=== PATIENT | male | born 1975 | race Caucasian/White ===

== ENCOUNTER 2016-08-23 14:11 | Emergency (ER) | payer BC, OTHER ==
[~2016-08-23] VITALS: Ht 182.9 cm; Wt 127.2 kg
[~2016-08-23 14:11] MED LIST: LISI20TA3 PO
[2016-08-23 14:23] VITALS: TEMP 36.8; Ht 182.9 cm; Wt 127.2 kg
[2016-08-23] MEDS ORDERED: LISINOPRIL 20 MG TAB PO STA (15:22)
[2016-08-23 15:25] VITALS: O2SAT 95
--- NOTE | 2016-08-23 15:25 | EMERGENCY ROOM VISIT NOTE ---
History Report prepared by Melissa: Chelsie Ramos Under the Supervision of: Zoe PaezO. First contact with patient: 15:14 Chief Complaint: HYPERTENSION Stated Complaint: HIGH BLOOD PRESSURE History of Present Illness The patient is a 41 year old male who presents to the Emergency Room with complaints of persistent hypertension for the past day. He reports he does have a history of hypertension after being diagnosed last year, but recently stopped taking his Lisinopril. He notes he lost weight and was "feeling good", which is why he stopped the medication. Earlier this afternoon, he was at a [facility] to get an antibiotic for his recent sinus infection and cold symptoms, and states the PA-C he saw referred him to the ED for his blood pressure. He denies any chest pain, shortness of breath, nausea or vomiting. He has been taking Advil, Tylenol and Mucinex for his symptoms, but denies taking any Sudafed or other decongestant. 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 A total of 10 systems reviewed and were otherwise negative. Past Medical & Surgical Medical Problems: (1) Calculus Of Kidney (2) Lumbar Disc Displacement Social History Smoking Status: Current Every Day Smoker Marital Status: Housing Status: lives with family Occupation Status: employed Current/Historical Medications Scheduled Amoxicillin & Pot Clavulanate (Augmentin 875-125 mg), 875 MG PO BID Lisinopril (Lisinopril), 1 TAB PO DAILY Pseudoephedrine-Guaifenesin (Mucinex D), 1 TAB PO BID Scheduled PRN Pseudoephedrine-Ibuprofen (Advil Cold & Sinus), 2 CAP PO Q4H PRN for CONGESTION Allergies Coded Allergies: No Known Allergies (Unverified , 08/23/16) Physical Exam Vital Signs Date Time Temp Pulse Resp B/P Pulse Ox O2 Delivery O2 Flow Rate FiO2 08/23/16 17:15 91 20 188/130 99 08/23/16 16:06 90 08/23/16 16:02 93 16 178/119 95 Room Air 08/23/16 15:25 95 Room Air 08/23/16 15:25 95 Room Air 08/23/16 14:23 36.8 100 18 220/129 95 Room Air Physical Exam GENERAL: Patient is awake, alert, in no acute distress, patient is resting comfortably and showing no signs of anxiety EYES: The conjunctivae are clear. The pupils are round and reactive. EARS, NOSE, MOUTH AND THROAT: Sinus congestion appreciated, nasal turbinates are inflamed, no significant discharge noted. The nose is without any evidence of any deformity. Tongue is midline NECK: The neck is nontender and supple. RESPIRATORY: Normal respiratory effort is noted there is no evidence of wheezing rhonchi or rales CARDIOVASCULAR: Regular rate and rhythm noted there no murmurs rubs or gallops normal S1 normal S2 GASTROINTESTINAL: The abdomen is soft. Bowel sounds are present in all quadrants. Abdomen is nontender MUSCULOSKELETAL/EXTREMITIES: There is no evidence of gross deformity full range of motion is noted in the hips and shoulders SKIN: There is no obvious evidence of any rash. There are no petechiae, pallor or cyanosis noted. NEUROLOGIC: Patient is awake alert and oriented x3 strength is symmetric patellar reflexes are 2+ bilaterally Medical Decision & Procedures ER Provider Diagnostic Interpretation: This X-Ray was reviewed and interpreted by myself and the radiologist. CHEST ONE VIEW PORTABLE IMPRESSION: No acute process. Electronically signed by: Nelson Soto M.D. 08/23/2016 4:[address] scans were reviewed and interpreted by the radiologist and reviewed by myself. HEAD CT NONCONTRAST Impression: No acute intracranial abnormality. A 4.3 x 1.0 cm extra-axial hypodense lesion within the lateral aspect of the right posterior fossa. This is consistent with arachnoid cyst. This is of doubtful clinical significance. Follow-up nonemergent brain MRI can be used for further evaluation. Electronically signed by: Nelson Soto M.D. 08/23/2016 4:[address] IMPRESSION: 1. Left nasal sinus disease as described above with opacification of the left ostiomeatal unit. 2. Left nasal septal deviation with a left-sided nasal spur. 3. No fluid levels within the paranasal sinuses. Electronically signed by: Nelson Soto M.D. 08/23/2016 4:16 PM Laboratory Results 08/23/16 15:21 Red Blood Count 4.66, Mean Corpuscular Volume 92.3, Mean Corpuscular Hemoglobin 32.0, Mean Corpuscular Hemoglobin Concent 34.7, Mean Platelet Volume 8.9, Neutrophils (%) (Auto) 64.5, Lymphocytes (%) (Auto) 19.1, Monocytes (%) (Auto) 13.5, Eosinophils (%) (Auto) 2.5, Basophils (%) (Auto) 0.2, Neutrophils # (Auto ) 5.18, Lymphocytes # (Auto) 1.54, Monocytes # (Auto) 1.09, Eosinophils # (Auto ) 0.20, Basophils # (Auto) 0.02 08/23/16 15:21 Test 08/23/16 15:21 White Blood Count 8.05 K/uL (4.8-10.8) Red Blood Count 4.66 M/uL (4.7-6.1) Hemoglobin 14.9 g/dL (14.0-18.0) Hematocrit 43.0 % (42-52) Mean Corpuscular Volume 92.3 fL (80-100) Mean Corpuscular Hemoglobin 32.0 pg (25-34) Mean Corpuscular Hemoglobin Concent 34.7 g/dl (32-36) Platelet Count 236 K/uL (130-400) Mean Platelet Volume 8.9 fL (7.4-10.4) Neutrophils (%) (Auto) 64.5 % Lymphocytes (%) (Auto) 19.1 % Monocytes (%) (Auto) 13.5 % Eosinophils (%) (Auto) 2.5 % Basophils (%) (Auto) 0.2 % Neutrophils # (Auto) 5.18 K/uL (1.4-6.5) Lymphocytes # (Auto) 1.54 K/uL (1.2-3.4) Monocytes # (Auto) 1.09 K/uL (0.11-0.59) Eosinophils # (Auto) 0.20 K/uL (0-0.5) Basophils # (Auto) 0.02 K/uL (0-0.2) RDW Standard Deviation 43.4 fL (36.4-46.3) RDW Coefficient of Variation 13.0 % (11.5-14.5) Immature Granulocyte % (Auto) 0.2 % Immature Granulocyte # (Auto) 0.02 K/uL (0.00-0.02) Prothrombin Time 10.7 SECONDS (9.0-12.0) Prothromb Time International Ratio 1.0 (0.9-1.1) Activated Partial Thromboplast Time 28.2 SECONDS (21.0-31.0) Partial Thromboplastin Ratio 1.1 Anion Gap 9.0 mmol/L (3-11) Est Creatinine Clear Calc Drug Dose 136.7 ml/min Estimated GFR () 109.4 Estimated GFR (Non- 94.4 BUN/Creatinine Ratio 12.7 (10-20) Calcium Level 9.1 mg/dl (8.5-10.1) Total Bilirubin 0.4 mg/dl (0.2-1) Aspartate Amino Transf (AST/SGOT) 17 U/L (15-37) Alanine Aminotransferase (ALT/SGPT) 30 U/L (12-78) Alkaline Phosphatase 69 U/L (45-117) Troponin I < 0.015 ng/ml (0-0.045) Total Protein 7.9 gm/dl (6.4-8.2) Albumin 4.2 gm/dl (3.4-5.0) Globulin 3.7 gm/dl (2.5-4.0) Albumin/Globulin Ratio 1.1 (0.9-2) Laboratory results per my review. Medications Administered Medications (Trade) Dose Ordered Sig/Loni Route Start Time Stop Time Status Last Admin Dose Admin Lisinopril (Zestril Tab) 20 mg NOW STAT PO 08/23/16 15:22 08/23/16 15:24 DC 08/23/16 15:32 20 MG Amoxicillin/ Clavulanate Potassium (Augmentin Tab) 875 mg NOW ONCE PO 08/23/16 16:45 08/23/16 16:46 DC 08/23/16 17:11 875 MG ECG Indication: other (hypertension) Rate (beats per minute): 105 Rhythm: sinus tachycardia Findings: no ectopy, other (No acute ST segment abnormalities) Comparison ECG Date: Increased rate, but otherwise no change when compared to October 05, 2014 ED Course 1519: The patient was evaluated in room B11. A complete history and physical examination were performed. 1522: Zestril 20 mg PO. 1545: Augmentin Tab 875 mg PO. 1644: I reevaluated the patient. He is feeling much better. I discussed his results and discharge instructions and he verbalized complete understanding and agreement. Medical Decision Prior records/ancillary studies reviewed regarding the history above. Triage Nursing notes reviewed. Additional history obtained from the family. The patient's history was concerning for hypertension. Differential diagnosis: Etiologies such as benign hypertension, hypertensive emergency, cardiovascular pathology, pheochromocytoma, electrolyte abnormality, renal disease, endorgan damage, as well as others were entertained. The patient is a 41-year-old male who presented to his primary care physician's clinic today for an evaluation of sinus pain and congestion. The patient was using [id number] medication. He was found have a significantly elevated blood pressure and was sent to the emergency department for further evaluation. The patient does admit that he was using some lanq-fhb-[id number] medications which could affect his blood pressure. He also was previously diagnosed with hypertension but stopped taking his medication. I discussed the patient's laboratory and radiographic studies with him. He was started on antibiotic for presumed sinus infection. He was also encouraged to avoid any further over-the- counter medications which could elevate his blood pressure. He was also encouraged to continue his antihypertensive medication as prescribed. He was also encouraged to have his blood pressure rechecked by his primary care physician this week but return to the emergency department immediately if symptoms change worsen or if the need arises. Impression Primary Impression: Sinusitis Additional Impressions: Hypertension Abnormal CT scan of head Scribe Attestation The scribe's documentation has been prepared under my direction and personally reviewed by me in its entirety. I confirm that the note above accurately reflects all work, treatment, procedures, and medical decision making performed by me. Departure Information Dispostion Home / Self-Care Prescriptions Lisinopril (Lisinopril) 20 Mg Tab 1 TAB PO DAILY, #30 TABS Prov: Irving Castro, DO 08/23/16 Amoxicillin & Pot Clavulanate (Augmentin 875-125 mg) 1 Tab Tab 875 MG PO BID for 7 Days, #14 TAB Prov: Irving Castro, DO 08/23/16 Referrals No Doctor, Assigned (PCP) Patient Instructions Hypertension Control, My [facility], Sinusitis Acute Additional Instructions Call your family to schedule a follow-up appointment. Rest and avoid any strenuous activity. Continue all medications as prescribed. Consider using Flonase or another steroid nasal spray to help with decongestion. You are also going to need to schedule an MRI the brain to further evaluate the abnormality noted on CAT scan today. Problem Qualifiers
[2016-08-23 15:30] LABS: BASO % 0.2 %; BASO ABS # 0.02 K/uL (0-0.2); COMPLETE YES; EOS % 2.5 %; IG% 0.2 %; LYMPH % 19.1 %; LYMPH ABS # 1.54 K/uL (1.2-3.4); MEAN CELL VOLUME 92.3 fL (80-100); MEAN CORPUSCULAR HGB CONC 34.7 g/dl (32-36); MEAN PLATELET VOLUME 8.9 fL (7.4-10.4); MONO % 13.5 %; NEUT % 64.5 %; PLATELET COUNT 236 K/uL (130-400); RED BLOOD COUNT 4.66 M/uL (4.7-6.1); WHITE BLOOD COUNT 8.05 K/uL (4.8-10.8)
[2016-08-23 15:45] LABS: PARTIAL THROMBOPLASTIN RATIO 1.1; PROTHROMBIN TIME (PATIENT) 10.7 SECONDS (9.0-12.0)
[2016-08-23] MEDS ORDERED: PSEUCAP67 PO (15:46)
[2016-08-23] MEDS ORDERED: PSEU60TA80 PO (15:46)
[2016-08-23 15:53] LABS: ALT/SGPT 30 U/L (12-78); BLOOD UREA NITROGEN 13 mg/dl (7-18); BUN/CREATININE RATIO 12.7 (10-20); CALCIUM 9.1 mg/dl (8.5-10.1); CARBON DIOXIDE 28 mmol/L (21-32); CHLORIDE 106 mmol/L (98-107); GLUCOSE 88 mg/dl (70-99); POTASSIUM 4.1 mmol/L (3.5-5.1); SODIUM 143 mmol/L (136-145)
[2016-08-23 15:58] LABS: ALB/GLOB RATIO 1.1 (0.9-2); ALKALINE PHOSPHATASE 69 U/L (45-117); AST/SGOT 17 U/L (15-37)
--- NOTE | 2016-08-23 16:11 | DIAGNOSTIC IMAGING REPORT ---
HEAD CT NONCONTRAST CT DOSE: HISTORY: Headache. Sinus pain. TECHNIQUE: Multiaxial CT images of the head were performed without the use of intravenous contrast. Automated exposure control was utilized for this study. Comparison: None. Findings: The calvarium and skull base are intact. The ventricles and sulci are within normal limits. There is no mass, hematoma, midline shift, or acute infarct. Within the right lateral posterior fossa there is an extra-axial 4.3 x 1.0 cm hypodense area resulting in slight mass effect along the right cerebellar hemisphere. This demonstrates CSF density and is therefore consistent with an arachnoid cyst. There is minimal mass effect at the fourth ventricle. However, the fourth ventricle is widely patent. Impression: No acute intracranial abnormality. A 4.3 x 1.0 cm extra-axial hypodense lesion within the lateral aspect of the right posterior fossa. This is consistent with arachnoid cyst. This is of doubtful clinical significance. Follow-up nonemergent brain MRI can be used for further evaluation. Electronically signed by: Nelson Soto M.D. 08/23/2016 4:10 PM Dictated Date/Time: 08/23/2016 4:03 PM
--- NOTE | 2016-08-23 16:17 | DIAGNOSTIC IMAGING REPORT ---
SINUS CT CT DOSE: HISTORY: Headache and facial pain. TECHNIQUE: Multiaxial CT images of the paranasal sinuses were performed and reformatted in the coronal plane without the use of contrast. COMPARISON: None. FINDINGS: Hypertrophied left middle and inferior nasal turbinate resulting in near-complete opacification of the left nasal cavity. The left ostiomeatal unit is also opacified. There is left nasal septal deviation with a left-sided nasal spur. The mastoid air cells are clear. The frontal sinuses are clear. There is minimal mucoperiosteal thickening within the ethmoid air cells, sphenoid sinuses, and right maxillary sinus. The left maxillary sinus is clear. No fluid levels within the paranasal sinuses. The orbits are unremarkable. IMPRESSION: 1. Left nasal sinus disease as described above with opacification of the left ostiomeatal unit. 2. Left nasal septal deviation with a left-sided nasal spur. 3. No fluid levels within the paranasal sinuses. Electronically signed by: Nelson Soto M.D. 08/23/2016 4:16 PM Dictated Date/Time: 08/23/2016 4:10 PM
--- NOTE | 2016-08-23 16:26 | DIAGNOSTIC IMAGING REPORT ---
CHEST ONE VIEW PORTABLE HISTORY: EVALUATE RESPIRATORY DISTRESS.DYSPNEA COMPARISON: Chest 05/30/2014. FINDINGS: The lungs are clear. Cardiac silhouette is normal in size. No pleural effusions. No pneumothorax. IMPRESSION: No acute process. Electronically signed by: Nelson Soto M.D. 08/23/2016 4:24 PM Dictated Date/Time: 08/23/2016 4:23 PM
[2016-08-23] MEDS ORDERED: AMOX875T PO (16:43)
[2016-08-23] MEDS ORDERED: LSN20 PO (16:43)
[2016-08-23] MEDS ORDERED: AMOXICILLIN/CLAVULANATE TAB 875 MG TAB PO ONE (16:45)
[2016-08-23 17:15] VITALS: BP 188/130; PULSE 91; O2SAT 99
== END 2016-08-23 17:17 | disposition home or self-care (01) ==
LOC: C.EDB 14:13
DX: J32.9 Chronic sinusitis, unspecified (principal); I10 Essential (primary) hypertension; Z00.01 Encounter for general adult medical examination with abnormal findings; M51.26 Other intervertebral disc displacement, lumbar region; F17.200 Nicotine dependence, unspecified, uncomplicated; Z87.442 Personal history of urinary calculi

== ENCOUNTER → 2016-08-31 | Outpatient (CLI) | payer OTHER ==
[~2016-08-31] MED LIST changes: +AMOX875T PO; +HYZ/10015 PO; -LISI20TA3 PO; +LSN20 PO; +LSNP/30 PO; +PSEU60TA80 PO; +PSEUCAP67 PO
[2016-08-31 13:30] LABS: BLOOD UREA NITROGEN 14 mg/dl (7-18); BUN/CREATININE RATIO 14.1 (10-20); CARBON DIOXIDE 29 mmol/L (21-32); CHLORIDE 105 mmol/L (98-107); CREATININE 0.99 mg/dl (0.60-1.40); GLUCOSE 102 mg/dl (70-99); POTASSIUM 4.1 mmol/L (3.5-5.1); SODIUM 140 mmol/L (136-145)
== END | disposition home or self-care (01) ==
LOC: C.LAB1850 11:58
PROVIDERS: ATTEND Nurse Practitioner Adult Health
DX: I10 Essential (primary) hypertension (principal); R63.5 Abnormal weight gain

== ENCOUNTER → 2016-09-17 | Outpatient (CLI) | payer OTHER ==
[~2016-09-17] MED LIST changes: -AMOX875T PO; +GADAVIST IV PRN
--- NOTE | 2016-09-17 20:01 | DIAGNOSTIC IMAGING REPORT ---
MRI OF THE BRAIN COMBO CLINICAL HISTORY: Follow-up abnormal CT. Intracranial cyst. COMPARISON STUDY: CT of the brain dated 08/23/16. TECHNIQUE: MRI of the brain was performed utilizing various T1 and T2-weighted sequences in the axial, sagittal, and coronal planes. Contrast-enhanced sequences were acquired following the administration of 12 cc of Gadavist. FINDINGS: Brain parenchyma: There are at least 2 foci of T2 signal abnormality seen within the subcortical and periventricular White matter. The largest is located in the left anterior parietal region as seen on axial T2 image #17 and measures 7 mm. 2 punctate foci of abnormal enhancement are suggested within the left basal ganglia end within left caudate head on axial postcontrast image #13. There is a 3.7 x 1.6 cm lesion in the right posterior fossa which conforms to CSF signal intensity on all sequences. There is no associated restricted diffusion and the appearance is typical for an arachnoid cyst. This causes minimal mass effect on the right cerebellar hemisphere. There is no hemorrhage or midline shift. There is no restricted diffusion typical for acute ischemia. No enhancing mass lesion is identified. Whittington-white matter differentiation is preserved. No extra-axial fluid collection is seen. There are low-lying cerebellar tonsils which project 8 mm below the foramen magnum. Ventricles, sulci, and cisterns: Normal in configuration. Pituitary and sella: Unremarkable. Intracranial vasculature: Normal flow voids are maintained at the skull base. Orbits: The bony orbits are grossly intact. Orbital contents are normal in appearance. Sinuses and mastoids: There is a trace right mastoid effusion. The left mastoid air cells and the paranasal sinuses are clear. Calvarium: Unremarkable. Cervical cord: Partially visualized cervical spinal cord is normal in morphology and signal intensity. IMPRESSION: 1. There is no hemorrhage, enhancing mass, or evidence of acute ischemia. 2. 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 3. The cystic lesion in the right posterior fossa seen by CT follows CSF signal intensity on all sequences and is typical for an arachnoid cyst. 4. There are scattered foci of indeterminant T2 signal within the subcortical and periventricular white matter. Additionally, 2 punctate foci of abnormal enhancement are suggested within the left caudate head and the left basal ganglia. These findings are nonspecific and of indeterminant significance. These could potentially be seen in the setting of a demyelinating disorder or possibly an infectious process such as Lyme disease. Clinical correlation will be essential. At a minimum, 3-6 month MRI follow-up is recommended. Electronically signed by: Rashaun Fuentes M.D. 09/17/2016 8:00 PM Dictated Date/Time: 09/17/2016 7:49 PM
== END | disposition home or self-care (01) ==
LOC: C.MRI 18:59
PROVIDERS: ATTEND Nurse Practitioner Adult Health
DX: R90.89 Other abnormal findings on diagnostic imaging of central nervous system (principal); G93.0 Cerebral cysts

== ENCOUNTER 2016-09-20 13:17 | Emergency (ER) | payer OTHER ==
[~2016-09-20] VITALS: Ht 182.9 cm; Wt 120.0 kg
[~2016-09-20 13:17] MED LIST changes: -GADAVIST IV PRN; -HYZ/10015 PO; -LSNP/30 PO
[2016-09-20 13:22] VITALS: TEMP 36.4; Ht 182.9 cm; Wt 120.0 kg
[2016-09-20] MEDS ORDERED: HYZ/10015 PO (13:52)
[2016-09-20] MEDS ORDERED: ONDANSETRON INJ 2 MG/ML 2 ML VIAL IV STA (14:16)
[2016-09-20] MEDS ORDERED: SODIUM CHLORIDE 0.9% 1000ML 1,000 ML IV STA (14:16)
[2016-09-20 14:29] LABS: BASO % 0.4 %; BASO ABS # 0.03 K/uL (0-0.2); COMPLETE YES; EOS % 0.5 %; HEMATOCRIT 42.3 % (42-52); IG% 0.2 %; LYMPH % 19.4 %; LYMPH ABS # 1.65 K/uL (1.2-3.4); MEAN CELL VOLUME 89.8 fL (80-100); MEAN CORPUSCULAR HEMOGLOBIN 31.6 pg (25-34); MEAN CORPUSCULAR HGB CONC 35.2 g/dl (32-36); MEAN PLATELET VOLUME 9.6 fL (7.4-10.4); MONO % 7.8 %; NEUT % 71.7 %; PLATELET COUNT 275 K/uL (130-400); RED BLOOD COUNT 4.71 M/uL (4.7-6.1); WHITE BLOOD COUNT 8.49 K/uL (4.8-10.8)
[2016-09-20] MEDS ORDERED: HYDROmorphone INJ 1 MG/ML SYR IV ONE (14:30)
[2016-09-20] MEDS ORDERED: OPTIRAY 320 IV PRN (14:30)
[2016-09-20 14:57] LABS: BUN/CREATININE RATIO 7.9 (10-20); CALCIUM 9.5 mg/dl (8.5-10.1); CREATININE 1.1 mg/dl (0.60-1.40); POTASSIUM 3.7 mmol/L (3.5-5.1)
[2016-09-20] MEDS ORDERED: HYDROmorphone INJ 1 MG/ML SYR IV STA (15:18)
--- NOTE | 2016-09-20 15:24 | DIAGNOSTIC IMAGING REPORT ---
ABDOMEN AND PELVIS CT WITH IV CONTRAST CT DOSE: 1089.71 mGy.cm HISTORY: CT abdomen and pelvis ll. Abd pain TECHNIQUE: Multiaxial CT images of the abdomen and pelvis were performed following the use of intravenous contrast. COMPARISON STUDY: 2008 FINDINGS: Lung bases are clear. Liver spleen and pancreas are unremarkable. Kidneys enhance uniformly. Gallbladder is negative for distention. Bowel pattern is nonobstructive. The appendix is normal. IMPRESSION: No acute process of the abdomen or pelvis Electronically signed by: Eliecer Flores M.D. 09/20/2016 3:22 PM Dictated Date/Time: 09/20/2016 3:17 PM
[2016-09-20 16:14] LABS: URINE APPEARANCE CLEAR (CLEAR); URINE BILIRUBIN NEG (NEG); URINE COLOR YELLOW; URINE NITRITE NEG (NEG); URINE PH 7.5 (4.5-7.5); URINE SPECIFIC GRAVITY > 1.045 (1.000-1.030); UROBILINOGEN NEG (NEG); ZZUR CULT IF INDIC CLEAN CATCH NO
[2016-09-20 16:42] LABS: MANUAL MICROSCOPIC REQUIRED? NO; REVIEW REQ? YES
[2016-09-20 17:13] VITALS: BP 163/104; PULSE 79; O2SAT 96
--- NOTE | 2016-09-20 19:42 | EMERGENCY ROOM VISIT NOTE ---
History Report prepared by Melissa: Dasia Matos Under the Supervision of: oZe TenaO. First contact with patient: 14:02 Chief Complaint: ABDOMINAL PAIN Stated Complaint: SEVERE LEFT SIDED PAIN Nursing Triage Summary: Pt reports severe 10/10 LLQ pain that began at approx 12 pm today following eating. Pt reports nausea, and feeling the urge to move bowels. No BM or emesis. History of Present Illness The patient is a 41 year old male who presents to the Emergency Room with complaints of severe constant dull LLQ abdominal pain beginning 2 hours ago. The patient states that the pain started right before he ate breakfast and is now moving into the center of his abdomen. He complains of nausea, the need to move his bowels without any production, and diarrhea. The patient notes that his last bowel movement was 1 hour ago and before that it was yesterday. He denies headache, cough, runny nose, fevers, chest pain, back pain, history of kidney stones, shortness of breath, vomiting, previous issues with constipation , previous abdominal surgeries, history of pancreatitis and pain with urination. The patient rates his pain as a 10/10 in severity. He notes that he occasionally drinks alcohol. Source of History: patient Onset: 2 hours ago Position: abdomen (LLQ) Symptom Intensity: 10/10 Timing: constant Modifying Factors (Worsening): eating Associated Symptoms: + diarrhea, + nausea, No SOB, No back pain, No chest pain, No cough, No fevers, No headache, No urinary symptoms, No vomiting Note: He complains of the need to move his bowels without any production. He denies runny nose, history of kidney stones,previous issues with constipation, previous abdominal surgeries, history of pancreatitis. Review of Systems See HPI for pertinent positives & negatives. A total of 10 systems reviewed and were otherwise negative. Past Medical & Surgical Medical Problems: (1) Calculus Of Kidney (2) Lumbar Disc Displacement Family History No pertinent family history stated. Social History Smoking Status: Current Every Day Smoker Alcohol Use: occasionally Marital Status: Housing Status: lives with family Occupation Status: employed Current/Historical Medications Scheduled Hctz/Losartan (Hyzaar 25MG/100MG), 1 TAB PO DAILY Allergies Coded Allergies: No Known Allergies (Unverified , 08/23/16) Physical Exam Vital Signs Date Time Temp Pulse Resp B/P Pulse Ox O2 Delivery O2 Flow Rate FiO2 3/5/17 17:13 79 18 163/104 96 Room Air 09/20/16 15:57 87 18 172/117 96 Room Air 09/20/16 14:41 76 20 158/110 95 Room Air 09/20/16 14:16 76 20 166/116 99 Room Air 09/20/16 13:22 36.4 76 18 182/109 97 Room Air Physical Exam GENERAL: sitting on the edge off the bed, moderate distress, holding LLQ EYE EXAM: normal conjunctiva OROPHARYNX: no exudate, no erythema, lips, buccal mucosa, and tongue normal and mucous membranes are moist NECK: supple, no nuchal rigidity, no adenopathy, non-tender LUNGS: Clear to auscultation. Normal chest wall mechanics HEART: no murmurs, S1 normal and S2 normal ABDOMEN: holding LLQ but no obvious tenderness on exam, positive bowel sounds, no rebound or guarding. BACK: Back is symmetrical on inspection and there is no deformity, no midline tenderness, no CVA tenderness. SKIN: no rashes and no bruising UPPER EXTREMITIES: upper extremities are grossly normal. LOWER EXTREMITIES: No pitting edema. NEURO EXAM: Normal sensorium, cranial nerves II-XII grossly intact, normal speech, no gross weakness of arms, no gross weakness of legs. Medical Decision & Procedures ER Provider Diagnostic Interpretation: CT:Per my review, radiologist interpretation. ABDOMEN AND PELVIS CT WITH IV CONTRAST COMPARISON STUDY: 2008 FINDINGS: Lung bases are clear. Liver spleen and pancreas are unremarkable. Kidneys enhance uniformly. Gallbladder is negative for distention. Bowel pattern is nonobstructive. The appendix is normal. IMPRESSION: No acute process of the abdomen or pelvis Electronically signed by: Eliecer Flores M.D. 09/20/2016 3:22 PM Dictated Date/Time: 09/20/2016 3:17 PM Laboratory Results 09/20/16 13:45 Red Blood Count 4.71, Mean Corpuscular Volume 89.8, Mean Corpuscular Hemoglobin 31.6, Mean Corpuscular Hemoglobin Concent 35.2, Mean Platelet Volume 9.6, Neutrophils (%) (Auto) 71.7, Lymphocytes (%) (Auto) 19.4, Monocytes (%) (Auto) 7.8, Eosinophils (%) (Auto) 0.5, Basophils (%) (Auto) 0.4, Neutrophils # (Auto) 6.09, Lymphocytes # (Auto) 1.65, Monocytes # (Auto) 0.66, Eosinophils # (Auto) 0.04, Basophils # (Auto) 0.03 09/20/16 13:45 Test 09/20/16 13:45 09/20/16 15:45 09/20/16 16:03 White Blood Count 8.49 K/uL (4.8-10.8) Red Blood Count 4.71 M/uL (4.7-6.1) Hemoglobin 14.9 g/dL (14.0-18.0) Hematocrit 42.3 % (42-52) Mean Corpuscular Volume 89.8 fL (80-100) Mean Corpuscular Hemoglobin 31.6 pg (25-34) Mean Corpuscular Hemoglobin Concent 35.2 g/dl (32-36) Platelet Count 275 K/uL (130-400) Mean Platelet Volume 9.6 fL (7.4-10.4) Neutrophils (%) (Auto) 71.7 % Lymphocytes (%) (Auto) 19.4 % Monocytes (%) (Auto) 7.8 % Eosinophils (%) (Auto) 0.5 % Basophils (%) (Auto) 0.4 % Neutrophils # (Auto) 6.09 K/uL (1.4-6.5) Lymphocytes # (Auto) 1.65 K/uL (1.2-3.4) Monocytes # (Auto) 0.66 K/uL (0.11-0.59) Eosinophils # (Auto) 0.04 K/uL (0-0.5) Basophils # (Auto) 0.03 K/uL (0-0.2) RDW Standard Deviation 40.5 fL (36.4-46.3) RDW Coefficient of Variation 12.4 % (11.5-14.5) Immature Granulocyte % (Auto) 0.2 % Immature Granulocyte # (Auto) 0.02 K/uL (0.00-0.02) Anion Gap 13.0 mmol/L (3-11) Est Creatinine Clear Calc Drug Dose 120.6 ml/min Estimated GFR () 97.5 Estimated GFR (Non- 84.1 BUN/Creatinine Ratio 7.9 (10-20) Calcium Level 9.5 mg/dl (8.5-10.1) Total Bilirubin 0.6 mg/dl (0.2-1) Direct Bilirubin 0.1 mg/dl (0-0.2) Aspartate Amino Transf (AST/SGOT) 21 U/L (15-37) Alanine Aminotransferase (ALT/SGPT) 27 U/L (12-78) Alkaline Phosphatase 62 U/L (45-117) Total Protein 8.2 gm/dl (6.4-8.2) Albumin 4.3 gm/dl (3.4-5.0) Lipase 160 U/L (73-393) Urine Color YELLOW Urine Appearance CLEAR (CLEAR) Urine pH 7.5 (4.5-7.5) Urine Specific [place] > 1.045 (1.000-1.030) Urine Protein NEG (NEG) Urine Glucose (UA) NEG (NEG) Urine Ketones NEG (NEG) Urine Occult Blood NEG (NEG) Urine Nitrite NEG (NEG) Urine Bilirubin NEG (NEG) Urine Urobilinogen NEG (NEG) Urine Leukocyte Esterase NEG (NEG) Urine WBC (Auto) 1-5 /hpf (0-5) Urine RBC (Auto) 0-4 /hpf (0-4) Urine Hyaline Casts (Auto) 1-5 /lpf (0-5) Urine Epithelial Cells (Auto) 5-10 /lpf (0-5) Urine Bacteria (Auto) NEG (NEG) Lactic Acid Level 1.9 mmol/L (0.4-2.0) Laboratory results per my review. Medications Administered Medications (Trade) Dose Ordered Sig/Loni Route Start Time Stop Time Status Last Admin Dose Admin Sodium Chloride (Nss 1000ml) 1,000 ml @ 999 mls/hr Q1H1M STAT IV 09/20/16 14:16 09/20/16 15:16 DC 09/20/16 14:16 999 MLS/HR Ondansetron HCl (Zofran Inj) 4 mg NOW STAT IV 09/20/16 14:16 09/20/16 14:18 DC 09/20/16 14:35 4 MG Hydromorphone HCl (Dilaudid Inj) 1 mg NOW ONCE IV 09/20/16 14:30 09/20/16 14:31 DC 09/20/16 14:39 1 MG Hydromorphone HCl (Dilaudid Inj) 1 mg NOW STAT IV 09/20/16 15:18 09/20/16 15:19 DC 09/20/16 15:22 1 MG ED Course ED COURSE: Vital signs were reviewed and showed hypertension The patients medical record was reviewed The above diagnostic studies were performed and reviewed. ED treatments and interventions as stated above. 1405: The patient was evaluated in room A11. A complete history and physical examination was performed. 1416: Zofran Inj 4mg IV, Sodium Chloride 1000 ml @ 999 mls/hr IV. 1430: Dilaudid Inj 1mg IV. 1518: Dilaudid Inj 1mg IV. 1549: I updated the patient. He is feeling better. 1650: I updated the patient. He is feeling much better. 1655: Upon reevaluation, the patient is hemodynamically stable.I discussed my findings with the patient and he understands and agrees with the treatment plan. Based on the patients age, coexisting illnesses, exam and lab findings the decision to treat as an outpatient was made. The patient remained stable while under my care. The patient appeared well at the time of discharge. Medical Decision Differential diagnoses includes but is not limited to gastritis, peptic ulcer disease, GERD, gallbladder disease, pancreatitis, small bowel obstruction, acute coronary syndrome, pericarditis, ischemic bowel, irritable bowel disease, irritable bowel syndrome, appendicitis, diverticulitis, malignancy, hernia, urinary tract infection, torsion, /ectopic , perforation, trauma, infectious. Patient is a 41-year-old male who presents the ER for left lower quadrant abdominal pain which started earlier today. Abdominal exam is benign. He has urinary complaints. Labs show no significant leukocytosis or anemia. BMP was unremarkable with exception of a mild hypoglycemia. LFTs and bilirubin along with lipase is normal. Lactic acid was normal. UA showed no hematuria and no signs of infection. CT of his abdomen pelvis was unremarkable. His no history of any clotting disorder to suggest ischemic bowel. Patient was updated regards to his findings. He was given 2 doses of IV narcotics. He felt slightly better along with fluids. He was discharged follow-up with his primary care doctor tomorrow for an abdominal recheck. Discussed with Pt concerning signs and symptoms to watch out for. Pt was instructed to follow up with their PCP and discussed with the patient their option to return to the ED at anytime for persistent or worsening symptoms. The appropriate anticipatory guidance and out-patient management, including indications for return to the emergency department, were explained at length to the patient and understood. Impression Primary Impression: LLQ abdominal pain Scribe Attestation The scribe's documentation has been prepared under my direction and personally reviewed by me in its entirety. I confirm that the note above accurately reflects all work, treatment, procedures, and medical decision making performed by me. Departure Information Dispostion Home / Self-Care Referrals No Doctor, Assigned (PCP) Forms Call Back Authorization, HOME CARE DOCUMENTATION FORM, IMPORTANT VISIT INFORMATION Patient Instructions Abdominal Pain - [facility], [place], [facility] Additional Instructions Please follow up with your primary care doctor with in the next 24 hours. Any worsening of your symptoms, please return to the ED immediately. This includes fevers greater than 100.4, worsening pain, persistent nausea vomiting, or any other concerning signs or symptoms from your standpoint. Please follow up with your primary care doctor in regards to your elevated blood pressure in the ER which could and is likely just secondary to pain.
== END 2016-09-20 17:15 | disposition home or self-care (01) ==
LOC: C.EDB 13:18 → C.EDA 17:15
DX: R10.32 Left lower quadrant pain (principal); R19.7 Diarrhea, unspecified; R11.0 Nausea; F17.210 Nicotine dependence, cigarettes, uncomplicated; Z79.899 Other long term (current) drug therapy

== ENCOUNTER → 2016-09-22 | Outpatient (CLI) | payer OTHER ==
[~2016-09-22] MED LIST changes: +HYZ/10015 PO; +LSNP/30 PO
[2016-09-22 18:10] LABS: BUN/CREATININE RATIO 15.1 (10-20); CALCIUM 8.8 mg/dl (8.5-10.1); CARBON DIOXIDE 27 mmol/L (21-32); CHLORIDE 93 mmol/L (98-107); GLUCOSE 181 mg/dl (70-99); POTASSIUM 3.5 mmol/L (3.5-5.1); SODIUM 130 mmol/L (136-145)
[2016-09-22 18:33] LABS: BLOOD UREA NITROGEN 17 mg/dl (7-18)
[2016-09-22 20:53] LABS: LYME DISEASE AB IGG NEG (NEG); LYME DISEASE AB IGM NEG (NEG)
== END | disposition home or self-care (01) ==
LOC: C.LABPBG 12:51
PROVIDERS: ATTEND Nurse Practitioner Adult Health
DX: I10 Essential (primary) hypertension (principal); G93.0 Cerebral cysts; R93.0 Abnormal findings on diagnostic imaging of skull and head, not elsewhere classified; G04.90 Encephalitis and encephalomyelitis, unspecified

== ENCOUNTER → 2016-09-25 | Outpatient (CLI) | payer OTHER ==
[~2016-09-25] MED LIST changes: -LSN20 PO; -PSEU60TA80 PO; -PSEUCAP67 PO
[2016-09-25 16:58] LABS: BLOOD UREA NITROGEN 16 mg/dl (7-18); BUN/CREATININE RATIO 16.6 (10-20); CALCIUM 8.9 mg/dl (8.5-10.1); CARBON DIOXIDE 29 mmol/L (21-32); CHLORIDE 96 mmol/L (98-107); CREATININE 0.98 mg/dl (0.60-1.40); GLUCOSE 144 mg/dl (70-99); POTASSIUM 3.2 mmol/L (3.5-5.1); SODIUM 134 mmol/L (136-145)
== END | disposition home or self-care (01) ==
LOC: C.LABPBG 13:45
PROVIDERS: ATTEND Nurse Practitioner Adult Health
DX: I10 Essential (primary) hypertension (principal); E87.1 Hypo-osmolality and hyponatremia

== ENCOUNTER 2016-10-06 07:13 | Inpatient (IN) | payer OTHER ==
[~2016-10-06] VITALS: Ht 182.9 cm; Wt 117.0 kg
[~2016-10-06 07:13] MED LIST changes: -LSNP/30 PO
[2016-10-06] MEDS ORDERED: SODIUM CHLORIDE 0.9% 1000ML 1,000 ML IV STA ×3 (07:38→08:41)
[2016-10-06] MEDS ORDERED: ACETAMINOPHEN 500 MG TAB PO STA (07:38)
[2016-10-06] MEDS ORDERED: SODIUM CHLORIDE 0.9% 1000ML 1,000 ML IV ONE (07:38)
[2016-10-06 07:51] LABS: BASO % 0.1 %; BASO ABS # 0.02 K/uL (0-0.2); COMPLETE YES; EOS % 0.1 %; HEMATOCRIT 30.2 % (42-52); IG% 0.5 %; LYMPH % 3.5 %; LYMPH ABS # 0.64 K/uL (1.2-3.4); MEAN CELL VOLUME 93.2 fL (80-100); MEAN CORPUSCULAR HEMOGLOBIN 31.8 pg (25-34); MEAN CORPUSCULAR HGB CONC 34.1 g/dl (32-36); MEAN PLATELET VOLUME 8.4 fL (7.4-10.4); MONO % 3.1 %; NEUT % 92.7 %; PLATELET COUNT 439 K/uL (130-400); RED BLOOD COUNT 3.24 M/uL (4.7-6.1); WHITE BLOOD COUNT 18.52 K/uL (4.8-10.8)
--- NOTE | 2016-10-06 07:52 | EMERGENCY ROOM VISIT NOTE ---
History Report prepared by Melissa: Lj Beard Under the Supervision of: Dr. Rafiq Draper M.D. First contact with patient: 07:28 Chief Complaint: FEVER Stated Complaint: SPIKING TEMPS X2WKS,VOMITING,DIARRHEA,ABDOMINAL PA History of Present Illness The patient is a 41 year old male who presents to the Emergency Room with complaints of persistent fevers for the past two weeks. The patient had Ibuprofen at 0545 this morning, per . The patient has had intermittent abdominal pain for which he was in the ED two weeks ago. The pain has improved. He notes that the location in his abdomen in which he experiences the pain changes. The patient does not have abdominal pain currently. The patient has also had a cough and notes that his taste has been off. The patient becomes lightheaded with movement. He has not had diarrhea since leaving the ED two weeks ago. He does not have a headache currently. The patient denies any sore throats or unusual rashes. He has followed up with his PCP since being discharged from the ED. He denies any recent tick bites, and does not strauss or have outdoor pets. He was recently tested for lyme which was negative. 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 The patient denies any history of IVDA. The patient has a history of hypertension and does smoke cigarettes. Source of History: patient, spouse/significant other Onset: two weeks ago Position: other (global) Quality: other (febrile) Timing: other (persistent) Associated Symptoms: + abdominal pain, + cough, + headache, No diarrhea, No rash, No sorethroat Review of Systems See HPI for pertinent positives & negatives. A total of 10 systems reviewed and were otherwise negative. Past Medical & Surgical Medical Problems: (1) Calculus Of Kidney (2) Lumbar Disc Displacement (3) Sepsis Family History Cancer Heart disease Hypertension Lung disease Social History Smoking Status: Current Every Day Smoker Alcohol Use: occasionally Marital Status: Housing Status: lives with family Occupation Status: employed Current/Historical Medications Scheduled Lisinopril (Zestril), 30 MG PO DAILY Allergies Coded Allergies: No Known Allergies (Unverified , 10/06/16) Physical Exam Vital Signs Date Time Temp Pulse Resp B/P Pulse Ox O2 Delivery O2 Flow Rate FiO2 10/06/16 09:57 94 18 113/68 98 Room Air 10/06/16 08:57 36.8 10/06/16 08:45 102 18 130/76 95 Room Air 10/06/16 07:47 112 116/68 115 121/74 119 120/63 10/06/16 07:38 113 18 112/69 96 Room Air 10/06/16 07:28 114 10/06/16 07:26 95 Room Air 10/06/16 07:16 37.8 128 20 104/51 95 Room Air Physical Exam GENERAL: Patient is a healthy-appearing well-nourished. Diaphoretic on exam. HEAD: Normocephalic atraumatic EYES: Ocular movements intact pupils equal and react to light OROPHARYNX mucous membranes are moist no exudates present no erythema or edema present NECK: Supple no nuchal rigidity CHEST: Good equal expansion LUNGS: Clear and equal to auscultation CARDIAC: Normal S1 and S2 ABDOMEN: Soft nontender no guarding BACK: No CVA tenderness EXTREMITIES: No pain upon palpation normal muscle strength in all groups no clubbing cyanosis or edema NEURO: Patient is following commands is answering questions appropriately. Alert and oriented x3 Cranial Nerves 2-12 grossly intact Medical Decision & Procedures ER Provider Diagnostic Interpretation: X-ray results as stated below per interpretation by me and the radiologist: CHEST ONE VIEW PORTABLE CLINICAL HISTORY: Sepsis dyspnea COMPARISON STUDY: 08/23/2016 FINDINGS: Mild stable cardiomegaly. Diaphragms smooth. Lungs are clear. IMPRESSION: Mild stable cardiomegaly. Otherwise negative study Electronically signed by: Eliecer Flores M.D. 10/06/2016 8:08 AM Dictated Date/Time: 10/06/2016 8:08 AM Laboratory Results 10/06/16 07:30 Red Blood Count 3.24, Mean Corpuscular Volume 93.2, Mean Corpuscular Hemoglobin 31.8, Mean Corpuscular Hemoglobin Concent 34.1, Mean Platelet Volume 8.4, Neutrophils (%) (Auto) 92.7, Lymphocytes (%) (Auto) 3.5, Monocytes (%) (Auto) 3.1, Eosinophils (%) (Auto) 0.1, Basophils (%) (Auto) 0.1, Neutrophils # (Auto) 17.19, Lymphocytes # (Auto) 0.64, Monocytes # (Auto) 0.57, Eosinophils # (Auto) 0.01, Basophils # (Auto) 0.02 10/06/16 07:30 Test 10/06/16 07:30 10/06/16 07:50 10/06/16 07:58 White Blood Count 18.52 K/uL (4.8-10.8) Red Blood Count 3.24 M/uL (4.7-6.1) Hemoglobin 10.3 g/dL (14.0-18.0) Hematocrit 30.2 % (42-52) Mean Corpuscular Volume 93.2 fL (80-100) Mean Corpuscular Hemoglobin 31.8 pg (25-34) Mean Corpuscular Hemoglobin Concent 34.1 g/dl (32-36) Platelet Count 439 K/uL (130-400) Mean Platelet Volume 8.4 fL (7.4-10.4) Neutrophils (%) (Auto) 92.7 % Lymphocytes (%) (Auto) 3.5 % Monocytes (%) (Auto) 3.1 % Eosinophils (%) (Auto) 0.1 % Basophils (%) (Auto) 0.1 % Neutrophils # (Auto) 17.19 K/uL (1.4-6.5) Lymphocytes # (Auto) 0.64 K/uL (1.2-3.4) Monocytes # (Auto) 0.57 K/uL (0.11-0.59) Eosinophils # (Auto) 0.01 K/uL (0-0.5) Basophils # (Auto) 0.02 K/uL (0-0.2) RDW Standard Deviation 43.4 fL (36.4-46.3) RDW Coefficient of Variation 12.7 % (11.5-14.5) Immature Granulocyte % (Auto) 0.5 % Immature Granulocyte # (Auto) 0.09 K/uL (0.00-0.02) Prothrombin Time 12.4 SECONDS (9.0-12.0) Prothromb Time International Ratio 1.2 (0.9-1.1) Activated Partial Thromboplast Time 28.0 SECONDS (21.0-31.0) Partial Thromboplastin Ratio 1.1 Anion Gap 8.0 mmol/L (3-11) Est Creatinine Clear Calc Drug Dose 131.0 ml/min Estimated GFR () 109.4 Estimated GFR (Non- 94.4 BUN/Creatinine Ratio 15.5 (10-20) Calcium Level 8.9 mg/dl (8.5-10.1) Total Bilirubin 1.2 mg/dl (0.2-1) Aspartate Amino Transf (AST/SGOT) 26 U/L (15-37) Alanine Aminotransferase (ALT/SGPT) 30 U/L (12-78) Alkaline Phosphatase 94 U/L (45-117) Total Creatine Kinase 49 U/L (39-308) Creatine Kinase MB < 0.5 ng/ml (0.5-3.6) Creatine Kinase MB Ratio (0-3.0) Troponin I 0.038 ng/ml (0-0.045) C-Reactive Protein 16.40 mg/dl (0-0.29) Total Protein 7.4 gm/dl (6.4-8.2) Albumin 2.5 gm/dl (3.4-5.0) Globulin 4.9 gm/dl (2.5-4.0) Albumin/Globulin Ratio 0.5 (0.9-2) Procalcitonin 0.88 ng/mL (0-0.5) Lyme Disease IgG Antibody NEG (NEG) Lyme Disease IgM Antibody NEG (NEG) Monoscreen POS (NEG) Influenza Type A (RT-PCR) Neg for Influ A (NEG) Influenza Type A Antigen Neg for Influ A (NEG) Influenza Type B Antigen Neg for Influ B (NEG) Influenza Type B (RT-PCR) Neg for Influ B (NEG) Bedside Lactic Acid Venous 0.67 mmol/L (0.90-1.70) Labs reviewed by ED physician. Medications Administered Medications (Trade) Dose Ordered Sig/Loni Route Start Time Stop Time Status Last Admin Dose Admin Sodium Chloride 1,000 ml @ 999 mls/hr Q1H1M ONCE IV 10/06/16 07:38 10/06/16 08:38 DC 10/06/16 07:56 999 MLS/HR Sodium Chloride (Nss 1000ml) 1,000 ml @ 999 mls/hr Q1H1M STAT IV 10/06/16 07:38 10/06/16 08:38 DC 10/06/16 07:56 999 MLS/HR Acetaminophen 1000 mg 1,000 mg NOW STAT PO 10/06/16 07:38 10/06/16 07:40 DC 10/06/16 07:57 1,000 MG Sodium Chloride (Nss 1000ml) 1,000 ml @ 999 mls/hr Q1H1M STAT IV 10/06/16 08:11 10/06/16 09:11 DC 10/06/16 08:54 999 MLS/HR Ceftriaxone Sodium (Rocephin Inj) 1 gm NOW STAT IV 10/06/16 08:41 10/06/16 08:43 DC 10/06/16 08:54 1 GM Vancomycin HCl 1 gm 1 gm NOW STAT IV 10/06/16 08:41 10/06/16 08:43 DC 10/06/16 09:57 1 GM Sodium Chloride (Nss 1000ml) 1,000 ml @ 999 mls/hr Q1H1M STAT IV 10/06/16 08:41 10/06/16 09:41 DC 10/06/16 09:55 999 MLS/HR ECG Indication: abdominal pain Rate (beats per minute): 111 Rhythm: sinus tachycardia Findings: no acute ischemic change, no ectopy ED Course 0733: Past medical records reviewed. The patient was evaluated in room B10. A complete history and physical examination was performed. 0738: Tylenol 1000 mg PO, NSS 1000 ml @ 999 mls/hr, NSS 1000 ml @ 999 mls/hr. 0811: Vancomycin HCl 1000 mg / NSS 270 ml @ 125 mls/hr, Levofloxacin 750 mg IV, Zosyn 4.5 gm IV, NSS 1000 ml @ 999 mls/hr. 0841: NSS 1000 ml @ 999 mls/hr, Vancomycin 1 gm IV, Rocephin1 gm IV. 0910: Updated the patient. 0955: Discussed the case with Dr. Mooney, [facility]. The patient will be evaluated. Medical Decision Differential diagnosis: Etiologies such as sepsis, UTI, pneumonia, metabolic, electrolyte abnormalities , cardiac sources, intracerebral event, toxicologic, neurologic, as well as others were entertained. This is a 41-year-old male who presents emergency department with hypotension and tachycardia along with fever. The patient is diaphoretic on examination. He is complaining of abdominal pain however has a benign abdominal examination. Serial abdominal examinations were performed on the patient while the patient was in the emergency department and at no time did the patient exhibited a surgical abdomen. Patient does have an elevation in his white blood count at 18. He is positive for mono. The patient was given Rocephin and vancomycin in the emergency department. Because the patient does meet sepsis criteria I did discuss the case with the hospitalist service who agreed to admit the patient. Patient and are in agreement with the treatment plan. Consults Time Called: 909 Consulting Physician: Dr. Mooney [facility] Returned Call: [phone]: Discussed the case with Dr. Mooney [facility]. The patient will be evaluated. Impression Primary Impression: Sepsis Additional Impression: Mononucleosis Critical Care I have personally spent greater than 30 minutes of critical care time in the direct management of this patient. This includes bedside care, interpretation of diagnostic studies, and testing, discussion with consultants, patient, and family members, and other required patient management activities. This 30 minutes is in excess of all separately billable procedures. Scribe Attestation The scribe's documentation has been prepared under my direction and personally reviewed by me in its entirety. I confirm that the note above accurately reflects all work, treatment, procedures, and medical decision making performed by me. Departure Information Dispostion Being Evaluated By Hospitalist Referrals Mary Doty CRNP (PCP) Patient Instructions My [facility] Problem Qualifiers Primary Impression: Sepsis Sepsis type: sepsis due to unspecified organism Qualified Codes: A41.9 - Sepsis, unspecified organism
[2016-10-06] MEDS ORDERED: LSNP/30 PO (07:55)
[2016-10-06 08:00] LABS: BLOOD UREA NITROGEN 16 mg/dl (7-18); BUN/CREATININE RATIO 15.5 (10-20); CALCIUM 8.9 mg/dl (8.5-10.1); CARBON DIOXIDE 25 mmol/L (21-32); CHLORIDE 98 mmol/L (98-107); GLUCOSE 181 mg/dl (70-99); INR 1.2 (0.9-1.1); PARTIAL THROMBOPLASTIN RATIO 1.1; POTASSIUM 4.3 mmol/L (3.5-5.1); PROTHROMBIN TIME (PATIENT) 12.4 SECONDS (9.0-12.0); SODIUM 131 mmol/L (136-145)
[2016-10-06 08:04] LABS: ALB/GLOB RATIO 0.5 (0.9-2); ALKALINE PHOSPHATASE 94 U/L (45-117); ALT/SGPT 30 U/L (12-78); AST/SGOT 26 U/L (15-37)
--- NOTE | 2016-10-06 08:09 | DIAGNOSTIC IMAGING REPORT ---
CHEST ONE VIEW PORTABLE CLINICAL HISTORY: Sepsis dyspnea COMPARISON STUDY: 08/23/2016 FINDINGS: Mild stable cardiomegaly. Diaphragms smooth. Lungs are clear. IMPRESSION: Mild stable cardiomegaly. Otherwise negative study Electronically signed by: Eliecer Flores M.D. 10/06/2016 8:08 AM Dictated Date/Time: 10/06/2016 8:08 AM
[2016-10-06] MEDS ORDERED: PIPERACILLIN/TAZOBACTAM 4.5 GM/100ML D5W IV STA (08:11)
[2016-10-06] MEDS ORDERED: VANCOMYCIN INJ 1,000 MG in SODIUM CHLORIDE 0.9% 250ML 250 ML IV STA (08:11)
[2016-10-06] MEDS ORDERED: LEVAQUIN 750MG / 150ML D5W IV STA (08:11)
[2016-10-06] MEDS ORDERED: VANCOMYCIN 1GM/270ML NSS IV STA (08:41)
[2016-10-06] MEDS ORDERED: CEFTRIAXONE SOD INJ 1 GM ADDVIAL IV STA (08:41)
[2016-10-06 09:17] LABS: LYME DISEASE AB IGG NEG (NEG); LYME DISEASE AB IGM NEG (NEG)
[2016-10-06] MEDS ORDERED: ONDANSETRON INJ 2 MG/ML 2 ML VIAL IV PRN (10:00)
[2016-10-06] MEDS ORDERED: ALUMINUM/MAGNESIUM/SIMETH (MAALOX MAX) 30 ML UDC PO PRN (10:00)
[2016-10-06] MEDS ORDERED: ACETAMINOPHEN 325 MG TAB PO PRN (10:00)
[2016-10-06] MEDS ORDERED: MAGNESIUM HYDROXIDE SUSP 30 ML UDC PO PRN (10:00)
[2016-10-06 10:28] LABS: INFLUENZA A PCR Neg for Influ A (NEG); INFLUENZA B PCR Neg for Influ B (NEG)
[2016-10-06 10:34] LABS: URINE APPEARANCE CLEAR (CLEAR); URINE BILIRUBIN NEG (NEG); URINE COLOR YELLOW; URINE NITRITE NEG (NEG); URINE SPECIFIC GRAVITY 1.009 (1.000-1.030); UROBILINOGEN NEG (NEG); ZZUR CULT IF INDIC CLEAN CATCH NO
[2016-10-06 10:35] LABS: MANUAL MICROSCOPIC REQUIRED? NO; REVIEW REQ? NO
[2016-10-06 11:23] VITALS: Ht 182.9 cm; Wt 117.0 kg
[2016-10-06] MEDS ORDERED: POLYETHYLENE (MIRALAX) 17 GM PACK PO PRN (11:30)
[2016-10-06 14:01] VITALS: BP 114/71; PULSE 81; TEMP 36.8; O2SAT 98
[2016-10-06 15:44] VITALS: TEMP 36.9
[2016-10-06 16:00] VITALS: O2SAT 98
[2016-10-06] MEDS ORDERED: ENOXAPARIN 40 MG/0.4 ML SYR SQ SCH (16:00)
[2016-10-06 16:23] VITALS: TEMP 37.3
--- NOTE | 2016-10-06 19:39 | DIAGNOSTIC IMAGING REPORT ---
ABDOMINAL ULTRASOUND, RIGHT UPPER QUADRANT HISTORY: RUQ pain, fevers, postprandial pain. COMPARISON: Abdomen and pelvis CT 09/20/2016. FINDINGS: Pancreas: The pancreatic head and tail are obscured by overlying bowel gas. The remaining portions of the pancreas are within normal limits. Liver: Unremarkable. Gallbladder: Only a small portion of the gallbladder was identified which appears unremarkable. However, the majority of the gallbladder was obscured by a gas and fluid-filled loop of bowel/stomach. CBD: 5 mm. Right kidney: No hydronephrosis. IMPRESSION: Only a small portion of the gallbladder was identified which appears unremarkable. However, the majority of the gallbladder was obscured by a gas and fluid-filled loop of bowel/stomach. Electronically signed by: Nelson Soto M.D. 10/06/2016 7:38 PM Dictated Date/Time: 10/06/2016 7:36 PM
--- NOTE | 2016-10-06 20:05 | History and Physical ---
History & Physical Date of Service Oct 06, 2016. History & Physical [id number]
[2016-10-06] MEDS ORDERED: OPTIRAY 320 IV PRN (20:15)
--- NOTE | 2016-10-06 21:38 | HISTORY & PHYSICAL EXAMINATION ---
DATE OF ADMISSION: 10/06/2016 CHIEF COMPLAINT: Abdominal pain. HISTORY OF PRESENT ILLNESS: The patient is a very pleasant 41-year-old male accompanied by his . He has had about 2 weeks of abdominal pain, it is mostly postprandial, it is epigastric as well as left middle and periumbilical, does not seem to radiate anywhere else. It is associated with some nausea and burping as well as actually oddly enough postprandial fevers. Notes generally the symptoms typically have started after he eats, does not necessarily seem to relate to what kind of food he eats, comes on maybe half hour or hour after he eats and lasts for several hours, spontaneous onset, spontaneous resolution. He has been taking Naprosyn as an antiinflammatory which he notes sometimes helps with the fever, but has absolutely no impact on the pain. He has not had vomiting. His bowels have been irregular during this time, sometimes diarrhea, sometimes constipation, sometimes more kind of loose, but there. He has had the fevers almost daily, this morning was 104 and he was feeling worse, so he came to the ER for further evaluation. He did have chills then as well. REVIEW OF SYSTEMS: Negative for any rashes, any joint pain, any known tick bites, no headache, no neck pain, no chest pain, no shortness of breath, no urinary symptoms. Review of systems is otherwise entirely negative except for as above. PAST MEDICAL HISTORY: Includes hypertension, although he notes this has been recent and just generally whenever he has been feeling lousy. Prior to this, he had a sinus infection and notes that during the last couple of months while he has been sick, his blood pressure has been up, otherwise no chronic medical problems. MEDICATIONS: Lisinopril 30 mg daily. Again, fairly recent in onset and he has not been taking the last couple of days because he notes his blood pressures have been lower. PAST SURGICAL HISTORY: Includes orthopedic surgeries including spine surgeries. No abdominal surgeries. FAMILY HISTORY: No immunologic or autoimmune diseases and in general, no family history he notes of significance. ALLERGIES: No known drug allergy. SOCIAL HISTORY: He does not smoke. No significant alcohol. 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 He is . He lives with his family, and has 3 young children. PHYSICAL EXAMINATION: VITAL SIGNS: Initial vitals showed a temp 37.8, pulse 128, respiratory rate 20, blood pressure 104/51, 95% on room air. GENERAL: He is awake, alert, oriented x3, fatigued appearing, but otherwise in no acute distress. HEENT: Normocephalic, atraumatic. Mucous membranes are moist. CARDIOVASCULAR: Regular at the time of my exam, he was tachycardic initially. No rubs, murmurs, or gallops. LUNGS: Clear to auscultation bilaterally. No rales, rhonchi, or wheezes with good effort. ABDOMEN: Soft, moderately distended. He has epigastric and right upper quadrant tenderness without guarding, rebound or rigidity. The rest of his abdomen is benign, soft, nontender, nondistended. EXTREMITIES: Show no cyanosis, clubbing or edema. SKIN: Shows no rashes, no pallor or icterus. NEUROLOGIC: Shows cranial nerves II through XII to be grossly intact. Gross motor and sensory are intact. MENTAL STATE: Shows good recent and remote recall. MUSCULOSKELETAL: Shows no gross lesions. LABS AND DIAGNOSTICS: CBC shows a white count of 18.5, hemoglobin 10.3, platelets 439. Complete metabolic panel with sodium 131, potassium 4.3, chloride 98, CO2 of 25, BUN 16, creatinine 1, calcium 8.9, glucose 181, total bilirubin 1.2 with an AST 26, ALT 30, alk phos 94, CK total of 49 with an MB of less than 0.5, troponin of 0.038, CRP of 16.4. His lactate was 0.67. His procalcitonin is 0.88, albumin 2.5. PT of 12.4 with an INR of 1.2. PTT 28. Lyme is negative. He had a Lyme negative about 2 weeks ago as well. [place] is positive as a mono screen, flu is negative. Urinalysis essentially was negative. He has got 10-20 epithelial cells. Chest x-ray is mild, stable cardiomegaly compared to previous, otherwise no acute findings. Blood cultures are pending. ASSESSMENT AND PLAN: 1. Sepsis, uncertain source. Fortunately, appears overall stable. It is unclear whether this is organ system pathology versus more clear simple bacterial infection. He has been given Levaquin, ceftriaxone and vancomycin in the ER which certainly will cover him while further workup is launched and to protect him from iatrogenic harm. At this point in time will work him up further before continuing empiric antibiotics and wait on time for blood cultures to grow. We will check a right upper quadrant ultrasound given the fact that he has got right upper quadrant tenderness to palpation and a lot of his symptoms are postprandial; however, the way he feels it is more epigastric and left-sided. If the ultrasound is negative, we will proceed with CT abdomen and pelvis as well as again following for his cultures to grow and serial exams. 2. Anemia. Continue to follow. 3. Recent sinusitis. This does not appear to be relevant to his current situation. 4. Deep venous thrombosis prophylaxis with Lovenox. 5. Mildly elevated bilirubin. Continue to follow. 6. Mild hyponatremia, follow up.
[2016-10-06] MEDS ORDERED: PIPERACILL/TAZOBAC IV 3.375 GM in DEXTROSE 5% 100ML 100 ML IV STA (23:15)
--- NOTE | 2016-10-06 23:16 | DIAGNOSTIC IMAGING REPORT ---
ABDOMEN AND PELVIS CT WITH IV AND ORAL CONTRAST CT DOSE: 1431.15 mGy.cm HISTORY: Left-sided abdominal pain, fever; postprandial onset of sx TECHNIQUE: Multiaxial CT images of the abdomen and pelvis were performed following the use of intravenous and oral contrast. COMPARISON STUDY: Abdomen and pelvis CT 09/20/2016. FINDINGS: The lung bases are clear. Posterior fusion hardware within the lower lumbar spine. The pancreas, adrenal glands are unremarkable. Normal right kidney. Punctate stone within the left kidney. No hydronephrosis. Normal bladder. Trace free fluid. Minimal thickening within the proximal transverse colon is likely reactive. Normal appendix. The gallbladder severely distended measuring up to 11 cm. There is gas both within and adjacent to the gallbladder. There is also inflammatory change surrounding the gallbladder. Findings are consistent with gangrenous acute cholecystitis. There is a small amount of gas within the normal caliber common bile duct. There are few small stones within the gallbladder. There are 2 adjacent extraluminal gas and fluid collections which are likely subcapsular rather than intrahepatic. These are consistent with abscesses. One of the abscess adjacent to the falciform ligament measures approximately 4.1 cm and the second subcapsular abscess at the right hepatic lobe measures approximately 5 cm. IMPRESSION: Acute gangrenous cholecystitis as described above. There are 2 adjacent abscesses which appear to be located within the subcapsular location of the liver. These findings were discussed with Dr. Berry at 11:13 PM on 10/06/2016 Electronically signed by: Nelson Soto M.D. 10/06/2016 11:15 PM Dictated Date/Time: 10/06/2016 11:03 PM
[2016-10-06] MEDS ORDERED: PIPERACILL/TAZOBAC IV 4.5 GM in DEXTROSE 5% 100ML IV STA (23:20)
[2016-10-06] MEDS ORDERED: ONDANSETRON INJ 2 MG/ML 2 ML VIAL IV STA (23:24)
[2016-10-06] MEDS ORDERED: PIPERACILL/TAZOBAC CONSULT ACTIVE PRN (23:30)
--- NOTE | 2016-10-06 23:32 | Progress Note ---
Progress Note Date of Service Oct 06, 2016. Progress Note Called by Dr Soto from Radiology about pts CT Scan which showed acute gangrenous cholecystitis Called Dr Duckworth, we ordered another dose of Zosyn to be administered now. I called the pharmacy to ensure this was brought up soon. Went to check on patient, he reported his pain was minimal but he does feel thirsty and nauseated. I paged Dr. uFentes, who said he will come evaluate the patient. I also started him on IV fluids, provided another dose of 4mg IV Zofran
[2016-10-06] MEDS: LACTATED RINGER'S 1000ML 1,000 ML IV SCH (23:45)
[2016-10-06 23:53] VITALS: BP 126/75; PULSE 103; TEMP 37; O2SAT 96
--- NOTE | 2016-10-07 00:03 | CONSULTATION REPORT ---
DATE OF CONSULTATION: 10/06/2016 REASON FOR CONSULTATION: Consult at midnight for acute emphysematous cholecystitis. HISTORY OF PRESENT ILLNESS: The patient is a 41-year-old male admitted this morning with epigastric pain and fever with an elevated white blood cell count and had persistent abdominal pain, underwent CAT scan this evening showing extremely distended gallbladder with fluid and air within the gallbladder consistent with emphysematous cholecystitis. The patient has a history of hypertension, spine surgery and other orthopedic surgery. REVIEW OF SYSTEMS: In the HPI. Ten other systems reviewed and negative. MEDICATIONS: Include lisinopril. FAMILY AND SOCIAL HISTORY: Noncontributory. PHYSICAL EXAMINATION: GENERAL: Currently, the patient is flushed. He is sitting up in the chair. He is awake and alert. HEENT: His sclerae are nonicteric. SKIN: Without rashes. NECK: Supple. LUNGS: Clear. HEART: Regular rate and rhythm. ABDOMEN: Distended. He does have right upper quadrant tenderness to palpation. EXTREMITIES: Show no significant edema. His mentation appears to be appropriate. DIAGNOSTIC IMPRESSION: I did review his CAT scan. ASSESSMENT AND PLAN: A 41-year-old male with what appeared to be a sepsis syndrome and underwent CAT scan examination showing evidence of necrotizing cholecystitis. I do feel intravenous fluids and intravenous antibiotics are appropriate. Also, it was this patient's body habitus and his findings, he is going to be extremely difficult laparoscopically in this situation. I do feel the patient may benefit from interventional radiology and percutaneous drainage of his gallbladder and interval cholecystectomy in several weeks. I am discussing with the primary service, possible transfer to a tertiary care center.
[2016-10-07] MEDS ORDERED: NURSING VERBAL MED ORDER ONE (00:15)
[2016-10-07] MEDS ORDERED: SODIUM CHLORIDE 0.9% 1000ML 1,000 ML IV SCH (00:15)
[2016-10-07] MEDS ORDERED: METRONIDAZOLE / NSS 500 MG in PREMIXED NSS 100 ML IV SCH (00:30)
--- NOTE | 2016-10-07 01:32 | Discharge Instructions ---
Discharge Instructions Date of Service Oct 07, 2016. Admission Reason for Admission: Sepsis Discharge Discharge Diagnosis / Problem: ACUTE NECROTIZING CHOLECYSTITIS Discharge Goals Goal(s): Improve disease control, Therapeutic intervention Activity Recommendations Activity Level: Bedrest . Additional Information Patient informed of condition: Yes Advance Directives: No DNR: No Level of Care: Other ([facility]) Communicable Disease: No Prognosis: Other (NEEDS INTERVENTION) Instructions / Follow-Up Instructions / Follow-Up Aleksander Allison is being transferred to a tertiary care facility for increased level of care, as he requires interventional radiology for his condition, which is unavailable at our facility. Due to his [facility] insurance, he will be transferred to [facility]. Current Hospital Diet Patient's current hospital diet: NPO with IV fluids Discharge Diet Recommended Diet: N/A (NPO) Procedures Procedures Performed: Ultrasound Abdomen: IMPRESSION: Only a small portion of the gallbladder was identified which appears unremarkable. However, the majority of the gallbladder was obscured by a gas and fluid-filled loop of bowel/stomach. ABDOMEN AND PELVIS CT WITH IV AND ORAL CONTRAST CT DOSE: 1431.15 mGy.cm HISTORY: Left-sided abdominal pain, fever; postprandial onset of sx TECHNIQUE: Multiaxial CT images of the abdomen and pelvis were performed following the use of intravenous and oral contrast. COMPARISON STUDY: Abdomen and pelvis CT 09/20/2016. FINDINGS: The lung bases are clear. Posterior fusion hardware within the lower lumbar spine. The pancreas, adrenal glands are unremarkable. Normal right kidney. Punctate stone within the left kidney. No hydronephrosis. Normal bladder. Trace free fluid. Minimal thickening within the proximal transverse colon is likely reactive. Normal appendix. The gallbladder severely distended measuring up to 11 cm. There is gas both within and adjacent to the gallbladder. There is also inflammatory change surrounding the gallbladder. Findings are consistent with gangrenous acute cholecystitis. There is a small amount of gas within the normal caliber common bile duct. There are few small stones within the gallbladder. There are 2 adjacent extraluminal gas and fluid collections which are likely subcapsular rather than intrahepatic. These are consistent with abscesses. One of the abscess adjacent to the falciform ligament measures approximately 4.1 cm and the second subcapsular abscess at the right hepatic lobe measures approximately 5 cm. IMPRESSION: Acute gangrenous cholecystitis as described above. There are 2 adjacent abscesses which appear to be located within the subcapsular location of the liver. CXR: Normal Pending Studies Studies pending at discharge: no Medical Emergencies . Who to Call and When: Medical Emergencies: If at any time you feel your situation is an emergency, please call 911 immediately. . Non-Emergent Contact Non-Emergency issues call your: Primary Care Provider, Hospital Doctor . . "Provider Documentation" section prepared by Ana Maria Berry. Core Measure Problem Core Measures: None
[2016-10-07] MEDS ORDERED: PIPERACILL/TAZOBAC IV 4.5 GM in DEXTROSE 5% 100ML IV SCH (04:00)
[2016-10-07 07:13] VITALS: BP 126/75; PULSE 103; TEMP 37; O2SAT 96
[2016-10-07 07:29] VITALS: BP 124/69; PULSE 98; TEMP 37.5; O2SAT 97
[2016-10-07] MEDS: LACTATED RINGER'S 1000ML 1,000 ML IV SCH (07:38)
[2016-10-07 07:52] LABS: HEMATOCRIT 27.4 % (42-52); MEAN CELL VOLUME 92.3 fL (80-100); MEAN CORPUSCULAR HEMOGLOBIN 30.6 pg (25-34); MEAN CORPUSCULAR HGB CONC 33.2 g/dl (32-36); MEAN PLATELET VOLUME 8.4 fL (7.4-10.4); PLATELET COUNT 388 K/uL (130-400); RED BLOOD COUNT 2.97 M/uL (4.7-6.1); WHITE BLOOD COUNT 12.14 K/uL (4.8-10.8)
[2016-10-07 08:43] LABS: BUN/CREATININE RATIO 13.3 (10-20); CALCIUM 8.3 mg/dl (8.5-10.1); CREATININE 0.76 mg/dl (0.60-1.40); POTASSIUM 3.6 mmol/L (3.5-5.1)
[2016-10-07 10:05] LABS: BASO % 0.2 %; BASO ABS # 0.02 K/uL (0-0.2); COMPLETE YES; EOS % 0.1 %; IG% 0.2 %; LYMPH % 9.5 %; LYMPH ABS # 1.15 K/uL (1.2-3.4); MONO % 9.6 %; NEUT % 80.4 %
--- NOTE | 2016-10-07 10:11 | Discharge Summary ---
Discharge Summary Date of Service Oct 07, 2016. Discharge Summary Admission Date: Oct 06, 2016 at 09:58 Discharge Date: Oct 07, 2016 Discharge Disposition: Acute care facility ([facility]) Principal Diagnosis: gangrenous cholecystitis Procedures: RUQ US benign but GB not well visualized. immediately followed by CT showing appearance of gangrenous cholecystitis Consultations: surgery Medication Reconciliation Discontinued Medications: Lisinopril (Zestril) 30 Mg Tab 30 MG PO DAILY, #30 Discharge Exam see admission exam, R2 notes from early AM; again pt transferred prior to my seeing him Hospital Course see HPI - came to ER after 2wks of worsening abdominal pain/fevers - mostly postprandial sx. pain subjectively L middle, periumbilical, and epigastric; on exam RUQ and epigastric -- because of this RUQ US ordered - was benign but also did not see GB well. immediately followed w CT showing findings c/w gangrenous cholecystitis. surgery consulted - felt this would be best addressed at higher level facility. pt transferred to [facility]. despite gangrenous gallbladder and meeting SIRS criteria therefore septic from gangrenous cholecystitis, he appeared clinically quite stable through his stay, and clearly sx had been gradually worsening over several weeks. blood cultures no growth to date although not yet at 24hr yue, WBC had improved. vitals stable. transferred in stable condition via ground. f/u PCP after discharge from [facility] Total Time Spent: Less than 30 minutes (pt seen in early AM by night coverage ( had signed out case last night) and transferred prior to my seeing him today) This includes examination of the patient, discharge planning, medication reconciliation, and communication with other providers. Discharge Instructions Please refer to the electronic Patient Visit Report (Discharge Instructions) for additional information. Additional Copies To Mary Doty CRNP
[2016-10-08 16:31] LABS: EHRLICHIA CHAFF IGG AB <1:64 (<1:64); EHRLICHIA CHAFF IGM AB <1:20 (<1:20)
== END 2016-10-07 08:15 | disposition short-term general hospital (02) | DRG 872 ==
LOC: ENRESERVDT → ENRESERVTM → C.EDB 07:14 → C.MS2W 09:58
PROVIDERS: ADMIT Family Medicine; ATTEND Family Medicine
DX: A41.9 Sepsis, unspecified organism (principal); K81.0 Acute cholecystitis; E87.1 Hypo-osmolality and hyponatremia; D64.9 Anemia, unspecified; I10 Essential (primary) hypertension; F17.210 Nicotine dependence, cigarettes, uncomplicated; Z79.899 Other long term (current) drug therapy

== ENCOUNTER → 2017-02-12 | Outpatient (CLI) | payer OTHER ==
[2017-02-12 13:09] LABS: ALT/SGPT 29 U/L (12-78); AST/SGOT 19 U/L (15-37); BLOOD UREA NITROGEN 15 mg/dl (7-18); BUN/CREATININE RATIO 15.7 (10-20); CALCIUM 9.3 mg/dl (8.5-10.1); CARBON DIOXIDE 29 mmol/L (21-32); CHLORIDE 108 mmol/L (98-107); CREATININE 0.95 mg/dl (0.60-1.40); GLUCOSE 108 mg/dl (70-99); POTASSIUM 4.1 mmol/L (3.5-5.1); SODIUM 141 mmol/L (136-145)
[2017-02-12 13:12] LABS: ALKALINE PHOSPHATASE 72 U/L (45-117); CHOLESTEROL 166 mg/dl (0-200); CHOLESTEROL/HDL RATIO 4.4; HDL CHOLESTEROL 38 mg/dl; LDL CHOLESTEROL CALCULATED 100 mg/dl; TRIGLYCERIDES 140 mg/dl (0-150); VERY LOW DENSITY LIPOPROT CALC 28 mg/dl
== END | disposition home or self-care (01) ==
LOC: C.LABPBG 10:44
PROVIDERS: ATTEND Neuromusculoskeletal Medicine & OMM
DX: Z00.00 Encounter for general adult medical examination without abnormal findings (principal); I10 Essential (primary) hypertension; E87.1 Hypo-osmolality and hyponatremia

== ENCOUNTER → 2017-06-18 | Outpatient (CLI) | payer OTHER ==
[2017-06-18 12:24] LABS: BLOOD UREA NITROGEN 17 mg/dl (7-18); BUN/CREATININE RATIO 18.6 (10-20); CALCIUM 9.3 mg/dl (8.5-10.1); CARBON DIOXIDE 30 mmol/L (21-32); CHLORIDE 100 mmol/L (98-107); CREATININE 0.89 mg/dl (0.60-1.40); GLUCOSE 116 mg/dl (70-99); POTASSIUM 3.6 mmol/L (3.5-5.1); SODIUM 137 mmol/L (136-145)
== END | disposition home or self-care (01) ==
LOC: C.LABPBG 08:22
PROVIDERS: ATTEND Family Medicine
DX: I10 Essential (primary) hypertension (principal)

== ENCOUNTER 2020-12-04 08:26 | Inpatient (IN) ==
--- NOTE | 2020-11-28 11:06 | Anesthesiology Consultation ---
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 Preoperative COVID19 testing completed on 11/27, will obtain results. Pt with asymptomatic Chiari type I, noted incidentally on brain MRI in 2016. Seen by neurology, told no surgical intervention needed. Spoke to patient, confirmed he is still asymptomatic. He does not recall who he saw for neurology, so unable to obtain note. Spoke to Dr. Gallagher. Nothing further needed, just caution advised with head/neck manipulation/positioning perioperatively. BSG AM DOS. Chart Review Chart Review: Acceptable Risk for Surgery and Patient NOT seen in Pre Admission Testing History Surgery Operation Date: 12/04/20 12:45 Proposed Procedures p L3-L4 Decompression and Fusion, L4-L5 Hardware Removal, Spinal Cord Monitoring - Dre Christensen, Height/Weight Height: 6 ft 1 in Weight: 129.274 kg Allergies Allergy/AdvReac Type Severity Reaction Status Date / Time No Known Allergies Allergy Unverified 11/28/20 08:15 Medications Home Medications Medication Instructions Recorded Confirmed Last Taken blood sugar diagnostic #100 ea 12/01/19 11/25/20 Unknown blood-glucose meter #1 ea 12/01/19 11/25/20 Unknown lancets 30 gauge #100 ea 12/01/19 11/25/20 Unknown CPAP Machine #1 ea 04/25/20 11/25/20 Unknown lisinopril 20 1 tab PO BID #180 tab 11/08/20 11/28/20 11/24/20 mg-hydrochlorothiazide 12.5 mg tablet atorvastatin 20 mg PO QAM 11/25/20 11/28/20 11/24/20 cyclobenzaprine 10 mg PO Q8H PRN #21 tab 11/25/20 11/28/20 Unknown metformin 500 mg tablet,extended 1,000 mg PO BID #120 tab 11/28/20 Unknown release 24hr Past Medical History Medical History (Updated 11/28/20 @ 11:50 by Moo Lai) Chiari malformation type I Noted on brain MRI 09/2016. Evaluated by neuro, told no surgical intervention needed, follow-up PRN. Hyperlipidemia Hypertension L4-L5 disc bulge VAISHNAVI (obstructive sleep apnea) CPAP T2DM (type 2 diabetes mellitus) Dx 11/2019. Metformin BID. Most recent A1C 7.4% 06/2020. Random glucose > 300 on pre op labs, surgeon made aware. Past Family History Family History (Updated 11/28/20 @ 08:23 by Marylin Lopez RN) Grandfather (Maternal) Coronary heart disease Grandfather (Paternal) Coronary heart disease Father Lung cancer Hypertension Family/Other Multiple sclerosis Other No family history of adverse response to anesthesia Denies family history of Ovarian cancer Prostate cancer Myocardial infarction Breast cancer Colorectal cancer Past Surgical History Surgical History (Updated 11/28/20 @ 08:22 by Marylin Lopez RN) Fusion of spine LUMBAR History of cholecystectomy History of discectomy LUMBAR History of myringotomy A CHILD History of tonsillectomy and adenoidectomy [place] teeth removed Social History Smoking Status: Current every day smoker tobacco type: cigarettes Smoking cigarettes per day: 20 CIG DAILY Do You Dip or Chew Tobacco: No Hx Alcohol Use: Yes Alcohol type: beer alcohol intake frequency: a few times a month Hx Substance Use: No substance use type: does not use Lab Results Anesthesia Preop Results Results Anesthesia Widget: WBC 10.01 K/uL (4.8-10.8) 11/27/20 Hgb 14.9 g/dL (14.0-18.0) 11/27/20 Hct 42.0 % (42-52) 11/27/20 Plt 235 K/uL (130-400) 11/27/20 Na 135 mmol/L (136-145) L 11/27/20 K 3.4 mmol/L (3.5-5.1) L 11/27/20 Cl 101 mmol/L (98-107) 11/27/20 CO2 25 mmol/L (21-32) 11/27/20 BUN 18 mg/dl (7-18) 11/27/20 Creat 1.16 mg/dl (0.6-1.4) 11/27/20 Glucose Level 324 mg/dl (70-99) H* 11/27/20 Urine Color Yellow 11/28/20 Urine Appearance Clear (Clear) 11/28/20 Urine pH 6.5 (4.5-7.5) 11/28/20 Urine Specific [place] 1.008 (1.000-1.030) 11/28/20 Urine Protein Negative (Negative) 11/28/20 Urine Glucose (UA) 1+ (Negative) H 11/28/20 Urine Ketones Negative (Negative) 11/28/20 Urine Blood Negative (Negative) 11/28/20 Urine Nitrite Negative (Negative) 11/28/20 Urine Bilirubin Negative (Negative) 11/28/20 Urine Urobilinogen Negative (Negative) 11/28/20 Urine Leukocyte Esterase Negative (Negative) 11/28/20 Lab Comments: *surgeon flagged re: elevated glucose Testing Laboratory Results Urine Color Cancelled 11/28/20 10:27 Urine Appearance Cancelled 11/28/20 10:27 Urine pH Cancelled 11/28/20 10:27 Ur Specific [place] Cancelled 11/28/20 10:27 Urine Protein Cancelled 11/28/20 10:27 Urine Glucose (UA) Cancelled 11/28/20 10:27 Urine Ketones Cancelled 11/28/20 10:27 Urine Nitrite Cancelled 11/28/20 10:27 Ur Leukocyte Esterase Cancelled 11/28/20 10:27 Urine WBC (Auto) Cancelled 11/28/20 10:27 Urine RBC (Auto) Cancelled 11/28/20 10:27 U Hyaline Cast (Auto) Cancelled 11/28/20 10:27 U Epithel Cells (Auto) Cancelled 11/28/20 10:27 Urine Bacteria (Auto) Cancelled 11/28/20 10:27 Electrocardiogram Date: 11/27/20 Findings: + ST @ (108bpm) and + no change from (2017) Chest X-Ray Date: 11/27/20 Findings: + NAD
[~2020-12-04 08:26] MED LIST changes: +ACETAMINOPHEN 500 MG TAB PO SCH; +CeleBREX 200 MG CAP PO SCH; +GABAPENTIN 900 MG DOSE PO SCH; -HYZ/10015 PO; +LR 15ML/HR IV SCH
[2020-12-04] MEDS ORDERED: fentaNYL citrate 100 MCG/2 ML VIAL ONE (09:22)
[2020-12-04] MEDS ORDERED: MIDAZOLAM HCL 1 MG/ML 2ML VIAL ONE (09:22)
[2020-12-04] MEDS ORDERED: LIDOCAINE 2% 2 ML VIAL/AMP(20MG/ML) INFIL ONE (09:23)
[2020-12-04] MEDS ORDERED: ONDANSETRON INJ 2 MG/ML 2 ML VIAL ONE ×2 (09:23→11:45)
[2020-12-04] MEDS ORDERED: PROPOFOL IV EMULSION 10 MG/ML 20 ML VIAL IV ONE (09:23)
[2020-12-04] MEDS ORDERED: DEXAMETHASONE SOD INJ 4 MG/ML VIAL ONE (09:23)
--- NOTE | 2020-12-04 09:52 | History & Physical Bridge Note ---
Date of Service December 04, 2020 History & Physical Bridge Note I have examined the patient, reviewed the History & Physical and in the interval since the performance of the History & Physical I have noted the following changes of clinical significance: no changes noted
--- NOTE | 2020-12-04 09:53 | History & Physical Report ---
Date of Service December 04, 2020 Assessment & Plan Admission and Anticipated Discharge Date Admission Date: Lumbar decompression and fusion L3-L4, hardware removal L4-L5 History of Present Illness Chief Complaint: Back and leg pain Primary Care Provider: Ginger Joyce DO This is a 45-year-old male known to me the presents with chronic persistent back and leg pain. After failing extensive course of nonoperative care is here for surgical intervention. Allergies Allergy/AdvReac Type Severity Reaction Status Date / Time No Known Allergies Allergy Unverified 12/04/20 09:02 Home Medications Medication Instructions Recorded Confirmed Type blood sugar diagnostic #100 ea 12/01/19 11/28/20 Rx blood-glucose meter #1 ea 12/01/19 11/28/20 Rx lancets 30 gauge #100 ea 12/01/19 11/28/20 Rx lisinopril 20 1 tab PO BID #180 tab 11/08/20 12/04/20 Rx mg-hydrochlorothiazide 12.5 mg tablet gabapentin 300 mg capsule 300 mg PO TID 11/28/20 12/04/20 History metformin 500 mg tablet,extended 1,000 mg PO BID #120 tab 11/28/20 11/28/20 Rx release 24hr CPAP Machine #1 ea 11/29/20 Rx atorvastatin 40 mg tablet 40 mg PO DAILY #30 tab 12/03/20 12/04/20 Rx dapagliflozin 5 mg tablet 5 mg PO DAILY #30 tab 12/03/20 12/04/20 Rx Past Med/Surg History Medical History Chiari malformation type I (09/2016) Noted on brain MRI 09/2016. Evaluated by neuro, told no surgical intervention needed, follow-up PRN. Hyperlipidemia Hypertension L4-L5 disc bulge Obesity VAISHNAVI (obstructive sleep apnea) CPAP T2DM (type 2 diabetes mellitus) (11/2019) Surgical History Fusion of spine LUMBAR History of cholecystectomy History of discectomy LUMBAR History of myringotomy A CHILD History of tonsillectomy and adenoidectomy [place] teeth removed Family History Grandfather (Maternal) Coronary heart disease Grandfather (Paternal) Coronary heart disease Father Lung cancer Hypertension Family/Other Multiple sclerosis Other No family history of adverse response to anesthesia Denies family history of Ovarian cancer Prostate cancer Myocardial infarction Breast cancer Colorectal cancer Social History Smoking Status: Current every day smoker Tobacco Type: Cigarettes Age Started Using Tobacco: 20; packs per day: 1; Cigarettes Per Day: 20 CIG DAILY; Second Hand Exposure: Yes ( A CHILD); Do You Dip or Chew Tobacco: No; Tobacco Cessation Education Requested by Patient: No Hx Alcohol Use: Yes Alcohol type: beer Alcohol Intake Frequency: Monthly or Less Hx Substance Use: No Preferred Language: Nepali Communication Ability: Effective Visual Impairment: No Limitations Hearing Ability: Normal Laundry Folder Required: No Beliefs That Will Affect Care: None marital status: Current Living Situation: Family current occupational status: 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 How many Children do You have: 2 Feels Safe at Home: Yes Safety Concerns: Feels Safe At This Time Childhood Exposure to Second-Hand Smoke: Yes caffeine: Yes (coffee) during the past year weight has: remained stable Dental Care, Regularly: No Physical Activity Frequency: Daily Physical Activity Frequency Comment: Mainly through Seatbelt Use: always Sunscreen Use: Yes Assistive Devices: Contacts and CPAP Physical Exam Physical Exam: Patient alert and oriented Heart regular in rhythm Lungs clear to auscultation Results & Data ([facility]) Vital Signs (Past 12 Hours) Vital Signs Temp Pulse Resp BP Pulse Ox 12/04/20 09:11 36.7 C 95 H 18 125/94 95
[2020-12-04] MEDS ORDERED: LABETALOL HCL IV 5 MG/ML 20ML IV PRN (09:56)
[2020-12-04] MEDS ORDERED: MEPERIDINE HCL 25 MG/ML CARP/VIAL IV PRN (09:56)
[2020-12-04] MEDS ORDERED: HYDROmorphone INJ 1 MG/ML SYRINGE IV PRN ×2 (09:56→14:13)
[2020-12-04] MEDS ORDERED: fentaNYL citrate 100 MCG/2 ML VIAL IV PRN (09:56)
[2020-12-04] MEDS ORDERED: ONDANSETRON INJ 2 MG/ML 2 ML VIAL IV PRN ×2 (09:56→14:13)
[2020-12-04] MEDS ORDERED: ePHEDrine sulfate 50 MG/ML AMP IV PRN (09:56)
[2020-12-04] MEDS ORDERED: ATROPINE SULFATE 0.1 MG/ML 10ML SYR IV PRN (09:56)
[2020-12-04] MEDS ORDERED: PHENYLEPHRINE 100MCG/ML 5ML SYR IV PRN (09:56)
[2020-12-04] MEDS ORDERED: INSULIN ASPART PER UNIT SC STA (09:58)
[2020-12-04] MEDS ORDERED: NovoLIN-R INSULIN PER UNIT CHARGE ONE (10:02)
[2020-12-04] MEDS ORDERED: BUPIVACAINE/EPINEPHRINE 0.5% MPF 1:200,000 30 ML VIAL ONE (10:05)
[2020-12-04] MEDS ORDERED: ceFAZolin 330 MG/ML 1 GM VIAL ONE (10:05)
[2020-12-04] MEDS ORDERED: HYDROmorphone INJ 2 MG/ML SYR/VIAL ONE (10:43)
[2020-12-04] MEDS ORDERED: FLOSEAL HEMOSTATIC MATRIX 10ML TOP ONE (11:35)
[2020-12-04] MEDS ORDERED: ROCURONIUM BROMIDE 10 MG/ML 5 ML VIAL IV ONE (11:45)
[2020-12-04] MEDS ORDERED: ePHEDrine sulfate 50 MG/ML SYR ONE (11:46)
[2020-12-04] MEDS ORDERED: NEOSTIGMINE METHYLSULFATE 1 MG/ML 10ML VIAL ONE (11:47)
[2020-12-04] MEDS ORDERED: GLYCOPYRROLATE 0.2 MG/ML VIAL ONE (11:47)
--- NOTE | 2020-12-04 12:31 | Operative Report ---
Post Operative Report Pre & Post Diagnosis Operation Date: 12/04/20 10:05 Pre-Op Diagnosis: Osseous and Subluxation Stenosis of Intervertebral Post-Op Diagnosis: Osseous and Subluxation Stenosis of Intervertebral I identified the patient and participated in the time-out.: Yes Procedure Operation Date: 12/04/20 10:05 Actual Procedures #1 removal of posterior instrumentation L4-5 per #2 exploration of fusion L4-5 #3 lumbar decompression with bilateral medial facetectomies and foraminotomies L2-3 L3-4. #4 posterior spinal fusion L3-4. #5 placement posterior instrumentation L3-4. #6 interbody fusion L3-4. #7 placement peek cage 13 x 26 mm at L3-L4. #8 placement locally harvested morselized autograft in the posterior gutters. #9 placement of I factor in the interbody space and by factor with vitoss in the posterior lateral gutters. Surgeon Dre Christensen, Pot Maker Nahomi Dodd Estimated Blood Loss 250 Findings See Below The patient is 6 feet 1 inches tall weighing over 125 kg with a BMI in excess of 36. Patient's body habitus did contribute significantly to technical difficulty requiring her deepest retractors longus instruments in order to perform his surgery. This at least 50% increase to the operative time. Specimens None Indications This is a 45-year-old male well-known to me the presents above-mentioned diagnosis after failing since course of nonoperative care is here for the above- mentioned procedure. Description of Procedure Patient was met with identified informed consent obtained. Patient was then taken to the operative suite underwent intubation and placed in a prone position on Sean table top Juanito frame. All bony prominences well-padded eyes inspected to ensure no external pressure placed upon the. This point the lumbar spine was prepped and draped in a sterile fashion. Sharp dissection with the a ssistance of Bovie cautery was performed down to and exposing the lamina and transverse processes of L3 and instrumentation at L4-L5 bilaterally. Then proceeded move the hardware bilaterally explore the fusion mass noting it to be mature and intact. Informed complete laminectomy L3 partial laminectomy L2 including bilateral medial facetectomies and foraminotomies addressing severe spinal stenosis. Pedicle screws were then placed in L3 and L4 bilaterally with assistance of fluoroscopy and the proper sized marj placed. By way of a transforaminal portion right complete discectomy of L3-L4 was performed endplates curetted to subcortical being bone and a 13 x 26 mm peek cage filled with I factor tapped in position. The rods were then locked in final position bilaterally. The transverse processes of L3 and L4 burred to subcortical bleeding bone. Locally harvested morselized autograft combined with I factor and detox was placed in the posterior gutters. 15 round OSIEL inserted. The incis ion was then closed with 1 Vicryl in the fascia 2-0 Vicryl subcutaneously and 4 Monocryl for final skin closure. Steri-Strip sterile dressings placed. Patient will continue PACU stable condition. Please note spinal cord monitoring was utilized at the procedure no changes noted. Lastly Nahomi Dodd was present at the entire surgery involved the patient positioning complex portions of the surgery and final skin closure. I attest to the content of the Intraoperative Record and any orders documented therein. Any exceptions are noted below.
--- NOTE | 2020-12-04 13:00 | Fluoroscopy Report ---
INTRAOPERATIVE RADIOGRAPHS CLINICAL HISTORY: L3-L4 spinal fusion. Fluoroscopy time: 11 seconds. FINDINGS: 2 spot fluoroscopic views of the lumbar spine are presented. There has been discectomy at L 4-L5 and L5-S1. There is evidence of lumbar laminectomy with interpedicular screws seen at L4-L5. The orthopedic hardware appears intact. IMPRESSION: Intraoperative images from lumbar spinal fusion surgery as above. Electronically signed by: Rashaun Fuentes M.D. 12/04/2020 12:59 PM
--- NOTE | 2020-12-04 13:30 | Anesthesiology Progress Note ---
Date of Service December 04, 2020 Anesthesia Post Procedure Vital Signs Vital Signs: Temp Pulse Pulse Resp BP BP Pulse Ox 12/04/20 13:15 36.8 C 81 18 132/68 96 12/04/20 13:05 93 H 19 120/69 96 12/04/20 12:55 91 H 15 113/62 96 12/04/20 12:45 36.9 C 96 H 14 140/86 96 12/04/20 09:11 36.7 C 95 H 18 125/94 95 Pain Intensity Right Leg: Pain Intensity: 2 Transfer of Care Handoff Completed per policy Notes Mental Status: alert / awake / arousable Patient Amnestic to Procedure: Yes Nausea / Vomiting: adequately controlled Pain: adequately controlled Airway Patency, RR, SpO2: stable & adequate BP & HR: stable & adequate Hydration State: stable & adequate Anesthetic Complications: no major complications apparent and Pt Satisfied with anesthetic care Notes: The patient is awake and comfortable. His SpO2 will go down to 90 when he rests and then quickly rises to 97 when he wakes up. The patient has his own CPAP which we will start. He will have continuous pulse oximetry on the floor.
[2020-12-04] MEDS ORDERED: bisacodyL 10 MG SUPP PR PRN (14:13)
[2020-12-04] MEDS ORDERED: DO NOT ADMINISTER FLU VACCINE PRN (14:13)
[2020-12-04] MEDS ORDERED: ONDANSETRON 4 MG OD TAB PO PRN (14:13)
[2020-12-04] MEDS ORDERED: ACETAMINOPHEN 500 MG TAB PO PRN (14:13)
[2020-12-04] MEDS ORDERED: SOD PHOSPHATE/SOD BIPHOSPHATE ENEMA 132 ML BTL PR PRN (14:13)
[2020-12-04] MEDS ORDERED: hydrOXYzine HCl 25 MG TAB PO PRN (14:13)
[2020-12-04] MEDS ORDERED: PROMETHAZINE HCL 12.5 MG in SODIUM CHLORIDE 0.9% 50 ML IV PRN (14:13)
[2020-12-04] MEDS ORDERED: ALUMINUM/MAGNESIUM SUSP 30 ML UDC PO PRN (14:13)
[2020-12-04] MEDS ORDERED: FAMOTIDINE 20 MG TAB PO PRN (14:13)
[2020-12-04] MEDS ORDERED: HYDROmorphone INJ 0.5 MG/0.5 ML SYR IV PRN (14:13)
[2020-12-04] MEDS ORDERED: NALOXONE HCL 0.4 MG/1 ML VIAL/CARP IV PRN (14:13)
[2020-12-04] MEDS ORDERED: DO NOT ADMINISTER PNEUMOCOCCAL VACCINE PRN (14:13)
[2020-12-04] MEDS ORDERED: ACETAMINOPHEN 1,000 MG/100 ML VIAL IV PRN (14:13)
[2020-12-04] MEDS ORDERED: diphenhydrAMINE Capsule 25 MG CAP PO PRN (14:13)
[2020-12-04] MEDS ORDERED: oxyCODONE HCL IR 5 MG TAB (IMMEDIATE RELEASE) PO PRN (14:13)
[2020-12-04] MEDS ORDERED: MAGNESIUM HYDROXIDE SUSP 30 ML UDC PO PRN (14:13)
[2020-12-04] MEDS ORDERED: LORazepam 0.5 MG TAB PO PRN (14:13)
[2020-12-04] MEDS ORDERED: LORazepam 0.5 MG/1 ML VIAL IV PRN (14:13)
[2020-12-04] MEDS ORDERED: METOCLOPRAMIDE HCL INJ 5 MG/ML 2 ML VIAL IV PRN (14:13)
[2020-12-04] MEDS ORDERED: PHARMACY GLYCEMIC MGMT CONSULT PRN (14:20)
[2020-12-04] MEDS ORDERED: INSULIN GLARGINE SOLOSTAR 100 UNITS/ML 3 ML PEN SC STA (14:29)
[2020-12-04] MEDS ORDERED: GLUCOSE 10 TAB/TUBE PO PRN (14:30)
[2020-12-04] MEDS ORDERED: GLUCAGON FOR INJ 1 MG VIAL IM PRN (14:30)
[2020-12-04] MEDS ORDERED: GLUCOSE 40% GEL 15 GM TUBE PO PRN (14:30)
[2020-12-04] MEDS ORDERED: DEXTROSE 50% 50 ML SYRINGE IV PRN (14:30)
[2020-12-04] MEDS ORDERED: CARBOHYDRATES FOR HYPOGLYCEMIA PO PRN (14:30)
--- NOTE | 2020-12-04 14:41 | Pharmacy Report ---
Pharmacy Glycemic Short Note 2 - Date of Service December 04, 2020 - Glycemic Short BSG Results (Last 24 hours): 12/04/20 12/04/20 12/04/20 08:45 11:01 12:47 POC Glucose 213 H 196 H 151 H OUTPATIENT ANTIDIABETIC REGIMEN: * Metformin ER 1000 mg PO BIDM * Farxiga 5 mg PO qAM * HbA1c = 8.3% (12/02/20) ASSESSMENT: * 45 yo M admitted s/p spinal fusion. Pharmacy has been consulted to assist with inpatient glycemic management. Patient did not receive any steroids perioperatively. * Preoperative BSG was 213 mg/dL. Postoperative BSG was 196 mg/dL. Patient was given 3 units of SC Regular insulin. BSG improved to 151 mg/dL. * Will start patient on Lantus based on actual body weight and stress of 2-3. Same goes for Novolog. First Lantus dose now followed by a smaller dose at HS if required per BSG. PLAN FOR INPATIENT GLYCEMIC CONTROL: * Hold outpatient oral diabetes medications * Basal insulin * Lantus 25 units SC x 1 * Lantus 0-10 units SC BID per BSG (see EHR for more details) * Bolus insulin * NovoLog per scale ACHS or Q6hrs while NPO * Goal Range: Low 110 mg/dL - High 140 mg/dL * Correction Factor: 15 mg/dL/unit * Nutritional / Prandial insulin per carb ratio of 1 unit per 5 grams CHO consumed PLAN FOR DISCHARGE: * To be determined
[2020-12-04] MEDS: GABAPENTIN 300 MG CAP PO SCH ×2 (15:13→21:09)
[2020-12-04] MEDS: KETOROLAC 30 MG/ML VIAL IV SCH ×2 (15:13→21:09)
[2020-12-04] MEDS: SODIUM CHLORIDE 0.9% 1000ML 1,000 ML IV SCH ×2 (15:18→22:09)
--- NOTE | 2020-12-04 15:35 | Hospitalist Consultation ---
Date of Consultation December 04, 2020 Assessment & Plan (1) Lumbar radiculopathy: Patient underwent L3-[address] Christensen 12/04/2020 postoperative course as directed by the attending team (2) T2DM (type 2 diabetes mellitus): Patient typically takes Farxiga and Metformin he will be on basal bolus insulin while here (3) Hypertension: Patient takes lisinopril hydrochlorothiazide 20/12.5 daily this will be continued (4) VAISHNAVI (obstructive sleep apnea): Patient did bring his home sleep apnea CPAP machine this will be inspected by our RT and he will be able to utilize it at night (5) Hyperlipidemia: Remains on atorvastatin 20 History of Present Illness Attending Physician: Dre Christensen, DO 45-year-old male who underwent L3-4 decompression and fusion with Dr. Christensen on 12/04/2020. Medical problems include diabetes dyslipidemia sleep apnea and obesity Allergies Allergy/AdvReac Type Severity Reaction Status Date / Time No Known Allergies Allergy Unverified 12/04/20 09:02 Home Medications Medication Instructions Recorded Confirmed Type blood sugar diagnostic #100 ea 12/01/19 11/28/20 Rx blood-glucose meter #1 ea 12/01/19 11/28/20 Rx lancets 30 gauge #100 ea 12/01/19 11/28/20 Rx lisinopril 20 1 tab PO BID #180 tab 11/08/20 12/04/20 Rx mg-hydrochlorothiazide 12.5 mg tablet gabapentin 300 mg capsule 300 mg PO TID 11/28/20 12/04/20 History metformin 500 mg tablet,extended 1,000 mg PO BID #120 tab 11/28/20 12/04/20 Rx release 24hr CPAP Machine #1 ea 11/29/20 Rx atorvastatin 40 mg tablet 40 mg PO DAILY #30 tab 12/03/20 12/04/20 Rx dapagliflozin 5 mg tablet 5 mg PO DAILY #30 tab 12/03/20 12/04/20 Rx oxycodone 5 mg PO Q6H PRN #30 tab 12/04/20 Rx tramadol 50 mg PO Q6H PRN #30 tab 12/04/20 Rx Patient History Medical History (Updated 12/04/20 @ 15:33 by Nick Barrera MD) Chiari malformation type I (09/2016) Noted on brain MRI 09/2016. Evaluated by neuro, told no surgical intervention needed, follow-up PRN. Hyperlipidemia Hypertension L4-L5 disc bulge Obesity VAISHNAVI (obstructive sleep apnea) CPAP T2DM (type 2 diabetes mellitus) (11/2019) Surgical History Fusion of spine LUMBAR History of cholecystectomy History of discectomy LUMBAR History of myringotomy A CHILD History of tonsillectomy and adenoidectomy [place] teeth removed Family History Grandfather (Maternal) Coronary heart disease Grandfather (Paternal) Coronary heart disease Father Lung cancer Hypertension Family/Other Multiple sclerosis Other No family history of adverse response to anesthesia Denies family history of Ovarian cancer Prostate cancer Myocardial infarction Breast cancer Colorectal cancer Social History Smoking Status: Current every day smoker Tobacco Type: Cigarettes Age Started Using Tobacco: 20; packs per day: 1; Cigarettes Per Day: 20 CIG DAILY; Second Hand Exposure: Yes ( A CHILD); Do You Dip or Chew Tobacco: No; Tobacco Cessation Education Requested by Patient: No Hx Alcohol Use: Yes Alcohol type: beer Alcohol Intake Frequency: Monthly or Less Hx Substance Use: No Preferred Language: Bengali Communication Ability: Effective Visual Impairment: No Limitations Hearing Ability: Normal Mobile Nurse Required: No Beliefs That Will Affect Care: None marital status: Current Living Situation: Family current occupational status: 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 How many Children do You have: 2 Feels Safe at Home: Yes Safety Concerns: Feels Safe At This Time Childhood Exposure to Second-Hand Smoke: Yes caffeine: Yes (coffee) during the past year weight has: remained stable Dental Care, Regularly: No Physical Activity Frequency: Daily Physical Activity Frequency Comment: Mainly through Seatbelt Use: always Sunscreen Use: Yes Assistive Devices: Contacts and CPAP Review of Systems Review of Systems: Mild distress and fatigue, patient is still awakening from his anesthesia no headache, blurry or double vision no speech or swallowing issues no chest pain, pressure or palpitations no shortness of breath, cough or wheezes no abdominal pain, nausea or vomiting, diarrhea or constipation no dysuria, hematuria or frequency no focal joint pain or swelling Typical postoperative back pain but radicular pain previously in his right leg is resolved. He does have a draining OSIEL drain at his side no bruising, bleeding or rashes no focal signs of weakness or numbness or altered sensation no complaints of anxiety or depression.. Physical Exam Physical Exam: The patient appeared well nourished and normally developed. Patient is morbidly obese Vital signs as documented. Head exam is normocephalic atraumatic Neck is without JVD, thyromegaly, or carotid bruits. Lungs are clear to auscultation, no focal loss of breath sounds Cardiac exam, Rhythm is regular.. No murmurs, rubs or gallops. Abdominal exam reveals normal bowel sounds, soft non tender, no masses Extremities are nonedematous and both pedal pulses are present Neurologic exam is alert and oriented, no focal loss of strength or sensation is good distal sensation of both legs good capillary refill Skin is without bruises or rashes or recommend inspect the surgical site Psychologically is without concerns for anxiety or depression Results & Data Results & Data ([facility]) Vital Signs (Past 12 Hours) Vital Signs Temp Pulse Pulse Resp BP BP Pulse Ox 12/04/20 15:06 97.5 F L 100 H 18 107/70 94 12/04/20 14:20 97.9 F 85 16 109/63 93 12/04/20 13:50 97.7 F 83 16 130/90 92 12/04/20 13:35 88 18 145/81 H 96 12/04/20 13:25 98.2 F 92 H 18 129/75 96 12/04/20 13:15 98.2 F 81 18 132/68 96 12/04/20 13:05 93 H 19 120/69 96 12/04/20 12:55 91 H 15 113/62 96 12/04/20 12:45 98.4 F 96 H 14 140/86 96 12/04/20 09:11 98.1 F 95 H 18 125/94 95 PG Care Time/CCT Total # of Minutes Spent Total Time Spent with Patient: Total time spent is greater than 50% in coordination of care (as documented) at patient's floor/unit and/or counseling patient: Coding Level of Care Code 92332 Inpt Consult Level 3 Diagnoses Lumbar radiculopathy M54.16 T2DM (type 2 diabetes mellitus) E11.9 Hypertension I10 VAISHNAVI (obstructive sleep apnea) G47.33 Hyperlipidemia E78.5
[2020-12-04] MEDS: ceFAZolin 2000MG 2,000 MG/15 ML SYR IV SCH (17:41)
[2020-12-04] MEDS: INSULIN ASPART 100 UNITS/ML 3 ML PEN SC SCH ×2 (17:43→21:13)
[2020-12-04] MEDS: DOCUSATE SODIUM/SENNA 50/8.6MG TAB PO SCH (21:09)
[2020-12-04] MEDS: LISINOPRIL/HCTZ 20/12.5MG 1 TAB TAB PO SCH (21:10)
[2020-12-04] MEDS: INSULIN GLARGINE SOLOSTAR 100 UNITS/ML 3 ML PEN SC SCH (21:14)
[2020-12-05] MEDS: ceFAZolin 2000MG 2,000 MG/15 ML SYR IV SCH (01:39)
[2020-12-05] MEDS: KETOROLAC 30 MG/ML VIAL IV SCH ×2 (03:19→08:52)
[2020-12-05] MEDS: SODIUM CHLORIDE 0.9% 1000ML 1,000 ML IV SCH (05:07)
[2020-12-05] MEDS: POLYETHYLENE (MIRALAX) 17 GM PACK PO SCH ×4 (05:41→22:58)
[2020-12-05 06:05] LABS: Basophils # (auto) 0.02 K/uL (0-0.2); Basophils % (auto) 0.2 %; Eosinophils # (auto) 0.15 K/uL (0-0.5); Eosinophils % (auto) 1.7 %; Hematocrit (blood only) 34.3 % (42-52); Hemoglobin 11.6 g/dL (14.0-18.0); Immature Granulocytes # (auto) 0.02 K/uL (0.00-0.02); Immature Granulocytes % (auto) 0.2 %; Lymphocytes # (auto) 2.21 K/uL (1.2-3.4); Lymphocytes % (auto) 25.7 %; Mean Corpuscular Hemoglobin 32.1 pg (25-34); Mean Corpuscular Hgb Conc 33.8 g/dL (32-36); Mean Platelet Volume 8.7 fL (7.4-10.4); Monocytes # (auto) 0.63 K/uL (0.11-0.59); Monocytes % (auto) 7.3 %; Neutrophils # (auto) 5.56 K/uL (1.4-6.5); Neutrophils % (auto) 64.9 %; Platelet Count 168 K/uL (130-400); RDW Coefficient of Variation 12.9 % (11.5-14.5); Red Blood Count 3.61 M/uL (4.7-6.1); White Blood Count 8.59 K/uL (4.8-10.8)
[2020-12-05 06:37] LABS: BUN Creatinine Ratio 14.2 (10-20); Calcium 8.1 mg/dl (8.5-10.1); Creatinine Clr Calc Pharmacy 157.6 ml/min; Est GFR (African American) 124.3 ml/min; Est GFR (Non-African American) 107.2 ml/min; Potassium 3.9 mmol/L (3.5-5.1)
--- NOTE | 2020-12-05 07:57 | Hospitalist Progress Note ---
Date of Service December 05, 2020 Assessment & Plan (1) Lumbar radiculopathy: * POD 1 s/p L3-[address] Christensen 12/04/2020. * EBL 250cc. Pre-op h/h 14.9/42 * OSIEL output 685cc * H/h dropped to 11.6/34.3 -- acute blood loss anemia from surgery/OSIEL output and some dilutional from 1L IVF * PT/OT/pain management/bowel regimen per primary service * Labs in AM (2) T2DM (type 2 diabetes mellitus): * a1c 8.3 from prior 7.4 -- on Farxiga 5mg daily and Metformin 1g PO BID * BSGs 151-213 * Pharmacy on consult for glycemic management * --> Discussed will need f/u with Dr. Joyce for further adjustments as well as for his elevated triglycerides (3) Hypertension: * BP contolled 120/76 * Continued on lisinopril-hydrochlorothiazide 20/12.5 PO BID (4) VAISHNAVI (obstructive sleep apnea): * CPAP HS -- has home machine (5) Hyperlipidemia: * Continue atorvastatin 20mg * Last lipid panel with elevated triglycerides to 735 -- would highly recommend close follow up with PCP Dr. Joyce regarding starting additional medications for control. Zetia/etc Dispo: continued inpatient stay Thank you for allowing hospitalist to participate in the care of Mr Allison. Hospitalist service will chart check in AM but sign off at this time. Please call with any questions/concerns. Admission and Anticipated Discharge Date Admission Date: December 04, 2020 Supervising Physician Co-Signing Physician Notes PA Supervision Note: I did not personally see or examine the patient today, but I verified all christina points of ALDO West's assessment and plan with the following exceptions/additions: None Subjective Patient evaluated this afternoon. Pain controlled. Worked with PT this morning "passed". Eating/drinking without issue. Passing gas but no BM yet. Discussed elevated A1c and triglycerides and will need f/u with Dr. Joyce outpatient. Pharmacy managing blood sugars while inpatient. No fever, chills, chest pain, shortness of breath, abdominal pain, nausea, vomiting or dysuria. Plans on d/c tomorrow per primary service. Questions/concerns addressed. Review of Systems Review of Systems: All systems reviewed & are unremarkable except as noted in HPI & below Physical Exam Physical Exam: The patient appeared well nourished and normally developed. Patient is morbidly obese Sitting in chair. NAD. Head exam is normocephalic atraumatic Neck is without JVD, thyromegaly, or carotid bruits. Lungs are clear to auscultation, no focal loss of breath sounds Cardiac exam, Rhythm is regular.. No murmurs, rubs or gallops. Abdominal exam reveals normal bowel sounds, soft non tender, no masses Extremities are nonedematous and both pedal pulses are present. dressing to lumbar spine c/d/i. OSIEL with 20-30cc bloody drainage Neurologic exam is alert and oriented, no focal loss of strength or sensation is good distal sensation of both legs good capillary refill Skin is without bruises or rashes Psychologically AOx3, euthymic Results & Data Results & Data ([facility]) Vital Signs (Past 12 Hours) Vital Signs Temp Pulse Resp BP Pulse Ox 12/05/20 07:50 36.5 C 82 18 120/76 98 12/05/20 00:50 36.4 C L 81 16 118/76 96 12/05/20 00:48 36.4 C L 74 16 96 12/04/20 21:06 36.7 C 83 16 125/84 97 Laboratory Results 12/05/20 12/05/20 12/04/20 Range/Units 05:48 05:48 20:34 WBC 8.59 (4.8-10.8) K/uL RBC 3.61 L (4.7-6.1) M/uL Hgb 11.6 L (14.0-18.0) g/dL Hct 34.3 L (42-52) % MCV 95.0 (80-100) fL MCH 32.1 (25-34) pg MCHC 33.8 (32-36) g/dL RDW Std Deviation 45.0 (36.4-46.3) fL RDW Coeff of Tiffani 12.9 (11.5-14.5) % Plt Count 168 (130-400) K/uL MPV 8.7 (7.4-10.4) fL Immature Gran % (Auto) 0.2 % Neut % (Auto) 64.9 % Lymph % (Auto) 25.7 % [place] % (Auto) 7.3 % Eos % (Auto) 1.7 % Baso % (Auto) 0.2 % Neut # (Auto) 5.56 (1.4-6.5) K/uL Lymph # (Auto) 2.21 (1.2-3.4) K/uL [place] # (Auto) 0.63 H (0.11-0.59) K/uL Eos # (Auto) 0.15 (0-0.5) K/uL Baso # (Auto) 0.02 (0-0.2) K/uL Immature Gran # (Auto) 0.02 (0.00-0.02) K/uL Sodium 137 (136-145) mmol/L Potassium 3.9 (3.5-5.1) mmol/L Chloride 104 (98-107) mmol/L Carbon Dioxide 28 (21-32) mmol/L Anion Gap 5.0 (3-11) BUN 12 (7-18) mg/dl Creatinine 0.84 (0.6-1.4) mg/dl Est Cr Clr Drug Dosing 157.6 ml/min Est GFR ( Amer) 124.3 ml/min Est GFR (Non-Af Amer) 107.2 ml/min BUN/Creatinine Ratio 14.2 (10-20) Glucose 151 H (70-99) mg/dl POC Glucose 190 H (70-99) mg/dl Calcium 8.1 L (8.5-10.1) mg/dl COVID-19 Eval Order SARS-CoV-2, RNA, NAAT (NEGATIVE) Blood Type Antibody Screen 12/04/20 12/04/20 12/04/20 Range/Units 17:19 12:47 11:01 WBC (4.8-10.8) K/uL RBC (4.7-6.1) M/uL Hgb (14.0-18.0) g/dL Hct (42-52) % MCV (80-100) fL MCH (25-34) pg MCHC (32-36) g/dL RDW Std Deviation (36.4-46.3) fL RDW Coeff of Tiffani (11.5-14.5) % Plt Count (130-400) K/uL MPV (7.4-10.4) fL Immature Gran % (Auto) % Neut % (Auto) % Lymph % (Auto) % [place] % (Auto) % Eos % (Auto) % Baso % (Auto) % Neut # (Auto) (1.4-6.5) K/uL Lymph # (Auto) (1.2-3.4) K/uL [place] # (Auto) (0.11-0.59) K/uL Eos # (Auto) (0-0.5) K/uL Baso # (Auto) (0-0.2) K/uL Immature Gran # (Auto) (0.00-0.02) K/uL Sodium (136-145) mmol/L Potassium (3.5-5.1) mmol/L Chloride (98-107) mmol/L Carbon Dioxide (21-32) mmol/L Anion Gap (3-11) BUN (7-18) mg/dl Creatinine (0.6-1.4) mg/dl Est Cr Clr Drug Dosing ml/min Est GFR ( Amer) ml/min Est GFR (Non-Af Amer) ml/min BUN/Creatinine Ratio (10-20) Glucose (70-99) mg/dl POC Glucose 212 H 151 H 196 H (70-99) mg/dl Calcium (8.5-10.1) mg/dl COVID-19 Eval Order SARS-CoV-2, RNA, NAAT (NEGATIVE) Blood Type Antibody Screen 12/04/20 12/04/20 12/04/20 Range/Units 08:46 08:45 08:42 WBC (4.8-10.8) K/uL RBC (4.7-6.1) M/uL Hgb (14.0-18.0) g/dL Hct (42-52) % MCV (80-100) fL MCH (25-34) pg MCHC (32-36) g/dL RDW Std Deviation (36.4-46.3) fL RDW Coeff of Tiffani (11.5-14.5) % Plt Count (130-400) K/uL MPV (7.4-10.4) fL Immature Gran % (Auto) % Neut % (Auto) % Lymph % (Auto) % [place] % (Auto) % Eos % (Auto) % Baso % (Auto) % Neut # (Auto) (1.4-6.5) K/uL Lymph # (Auto) (1.2-3.4) K/uL [place] # (Auto) (0.11-0.59) K/uL Eos # (Auto) (0-0.5) K/uL Baso # (Auto) (0-0.2) K/uL Immature Gran # (Auto) (0.00-0.02) K/uL Sodium (136-145) mmol/L Potassium (3.5-5.1) mmol/L Chloride (98-107) mmol/L Carbon Dioxide (21-32) mmol/L Anion Gap (3-11) BUN (7-18) mg/dl Creatinine (0.6-1.4) mg/dl Est Cr Clr Drug Dosing ml/min Est GFR ( Amer) ml/min Est GFR (Non-Af Amer) ml/min BUN/Creatinine Ratio (10-20) Glucose (70-99) mg/dl POC Glucose 213 H (70-99) mg/dl Calcium (8.5-10.1) mg/dl COVID-19 Eval Order SARS-CoV-2, RNA, NAAT NEGATIVE (NEGATIVE) Blood Type O Positive Antibody Screen NEGATIVE 12/04/20 Range/Units 08:42 WBC (4.8-10.8) K/uL RBC (4.7-6.1) M/uL Hgb (14.0-18.0) g/dL Hct (42-52) % MCV (80-100) fL MCH (25-34) pg MCHC (32-36) g/dL RDW Std Deviation (36.4-46.3) fL RDW Coeff of Tiffani (11.5-14.5) % Plt Count (130-400) K/uL MPV (7.4-10.4) fL Immature Gran % (Auto) % Neut % (Auto) % Lymph % (Auto) % [place] % (Auto) % Eos % (Auto) % Baso % (Auto) % Neut # (Auto) (1.4-6.5) K/uL Lymph # (Auto) (1.2-3.4) K/uL [place] # (Auto) (0.11-0.59) K/uL Eos # (Auto) (0-0.5) K/uL Baso # (Auto) (0-0.2) K/uL Immature Gran # (Auto) (0.00-0.02) K/uL Sodium (136-145) mmol/L Potassium (3.5-5.1) mmol/L Chloride (98-107) mmol/L Carbon Dioxide (21-32) mmol/L Anion Gap (3-11) BUN (7-18) mg/dl Creatinine (0.6-1.4) mg/dl Est Cr Clr Drug Dosing ml/min Est GFR ( Amer) ml/min Est GFR (Non-Af Amer) ml/min BUN/Creatinine Ratio (10-20) Glucose (70-99) mg/dl POC Glucose (70-99) mg/dl Calcium (8.5-10.1) mg/dl COVID-19 Eval Order Covid19 [facility] SARS-CoV-2, RNA, NAAT (NEGATIVE) Blood Type Antibody Screen PG Care Time/CCT Total # of Minutes Spent Total Time Spent with Patient: Total time spent is greater than 50% in coordination of care (as documented) at patient's floor/unit and/or counseling patient: Coding Level of Care Code 17458 Subseq Hosp Care Lvl 2 Diagnoses Lumbar radiculopathy M54.16 T2DM (type 2 diabetes mellitus) E11.9 Hypertension I10 VAISHNAVI (obstructive sleep apnea) G47.33 Hyperlipidemia E78.5
--- NOTE | 2020-12-05 08:46 | Anesthesiology Progress Note ---
Date of Service December 05, 2020 Anesthesia Post Procedure Vital Signs Vital Signs: Temp Pulse Pulse Pulse Resp BP BP 12/05/20 07:50 36.5 C 82 18 120/76 12/05/20 00:50 36.4 C L 81 16 118/76 12/05/20 00:48 36.4 C L 74 16 12/04/20 21:06 36.7 C 83 16 125/84 12/04/20 17:19 36.4 C L 87 18 122/79 12/04/20 15:53 84 18 107/69 12/04/20 15:06 36.4 C L 100 H 18 107/70 12/04/20 14:20 36.6 C 85 16 109/63 12/04/20 13:50 36.5 C 83 16 130/90 12/04/20 13:35 88 18 145/81 H 12/04/20 13:25 36.8 C 92 H 18 129/75 12/04/20 13:15 36.8 C 81 18 132/68 12/04/20 13:05 93 H 19 120/69 12/04/20 12:55 91 H 15 113/62 12/04/20 12:45 36.9 C 96 H 14 140/86 12/04/20 09:11 36.7 C 95 H 18 125/94 Pulse Ox 12/05/20 07:50 98 12/05/20 00:50 96 12/05/20 00:48 96 12/04/20 21:06 97 12/04/20 17:19 95 12/04/20 15:53 93 12/04/20 15:06 94 12/04/20 14:20 93 12/04/20 13:50 92 12/04/20 13:35 96 12/04/20 13:25 96 12/04/20 13:15 96 12/04/20 13:05 96 12/04/20 12:55 96 12/04/20 12:45 96 12/04/20 09:11 95 Pain Intensity Right Leg: Pain Intensity: 2 Back: Pain Intensity: 4 Notes Mental Status: alert / awake / arousable and participated in evaluation Patient Amnestic to Procedure: Yes Nausea / Vomiting: adequately controlled Pain: adequately controlled Airway Patency, RR, SpO2: stable & adequate BP & HR: stable & adequate Hydration State: stable & adequate Anesthetic Complications: no major complications apparent
--- NOTE | 2020-12-05 08:47 | Orthopedic Progress Note ---
Date of Service December 05, 2020 Assessment & Plan (1) Lumbar radiculopathy: Admission and Anticipated Discharge Date Admission Date: December 04, 2020 We will continue with physical therapy today monitor his OSIEL operatively discharge home tomorrow Wednesday. Subjective Patient's back pain is controlled leg symptoms markedly improved Physical Exam Physical Exam: Patient is in a chair at the bedside. Is good strength testing. Appears comfortable. Results & Data ([facility]) Vital Signs (Past 12 Hours) Vital Signs Temp Pulse Resp BP Pulse Ox 12/05/20 07:50 36.5 C 82 18 120/76 98 12/05/20 00:50 36.4 C L 81 16 118/76 96 12/05/20 00:48 36.4 C L 74 16 96 12/04/20 21:06 36.7 C 83 16 125/84 97
[2020-12-05] MEDS: INSULIN ASPART 100 UNITS/ML 3 ML PEN SC SCH ×4 (08:51→20:55)
[2020-12-05] MEDS: LISINOPRIL/HCTZ 20/12.5MG 1 TAB TAB PO SCH ×2 (08:52→20:55)
[2020-12-05] MEDS: INSULIN GLARGINE SOLOSTAR 100 UNITS/ML 3 ML PEN SC SCH ×2 (08:52→20:56)
[2020-12-05] MEDS: ATORVASTATIN 40 MG TAB PO SCH (08:52)
[2020-12-05] MEDS: GABAPENTIN 300 MG CAP PO SCH ×3 (08:52→20:54)
[2020-12-05] MEDS ORDERED: INSULIN HUMAN NPH SC SCH (13:00)
--- NOTE | 2020-12-05 14:25 | Pharmacy Report ---
Pharmacy Glycemic Short Note 2 - Date of Service December 05, 2020 - Glycemic Short BSG Results (Last 24 hours): 12/04/20 12/04/20 12/05/20 17:19 20:34 05:48 Glucose 151 H POC Glucose 212 H 190 H 12/05/20 12/05/20 08:09 12:07 Glucose POC Glucose 190 H 163 H OUTPATIENT ANTIDIABETIC REGIMEN: * Metformin ER 1000 mg PO BIDM * Farxiga 5 mg PO qAM * HbA1c = 8.3% (12/02/20) ASSESSMENT: 12/05: * Patient reasonably controlled over the past 24 hours. Will continue with a low to moderate stressed weight based lantus regimen and continue with a tighter NovoLog scale. Patient is tolerating a diet. * Of note, IV dexamethasone is ordered to begin tomorrow morning. Will plan on initiating NPH with this tomorrow. 12/04 * 45 yo M admitted s/p spinal fusion. Pharmacy has been consulted to assist with inpatient glycemic management. Patient did not receive any steroids perioperatively. * Preoperative BSG was 213 mg/dL. Postoperative BSG was 196 mg/dL. Patient was given 3 units of SC Regular insulin. BSG improved to 151 mg/dL. * Will start patient on Lantus based on actual body weight and stress of 2-3. Same goes for Novolog. First Lantus dose now followed by a smaller dose at HS if required per BSG. PLAN FOR INPATIENT GLYCEMIC CONTROL: * Hold outpatient oral diabetes medications * Basal insulin * Lantus 15 units SC this morning * Lantus 10-15-20 units SC BID per BSG (see EHR for more details) * Bolus insulin * NovoLog per scale ACHS or Q6hrs while NPO * Goal Range: Low 110 mg/dL - High 140 mg/dL * Correction Factor: 15 mg/dL/unit * Nutritional / Prandial insulin per carb ratio of 1 unit per 5 grams CHO consumed
[2020-12-05] MEDS: traMADol HCL 50 MG TABLET PO PRN ×2 (15:54→20:51)
[2020-12-05] MEDS: DOCUSATE SODIUM/SENNA 50/8.6MG TAB PO SCH (20:55)
[2020-12-06] MEDS: POLYETHYLENE (MIRALAX) 17 GM PACK PO SCH ×2 (05:16→12:59)
[2020-12-06 06:39] LABS: Hematocrit (blood only) 34.9 % (42-52); Hemoglobin 12.2 g/dL (14.0-18.0); Mean Corpuscular Hemoglobin 32.4 pg (25-34); Mean Corpuscular Volume 92.8 fL (80-100); Mean Platelet Volume 8.9 fL (7.4-10.4); Platelet Count 197 K/uL (130-400); RDW Coefficient of Variation 12.6 % (11.5-14.5); RDW Standard Deviation 43.1 fL (36.4-46.3); Red Blood Count 3.76 M/uL (4.7-6.1); White Blood Count 10.15 K/uL (4.8-10.8)
[2020-12-06 06:57] LABS: BUN Creatinine Ratio 13.4 (10-20); Calcium 8.7 mg/dl (8.5-10.1); Creatinine Clr Calc Pharmacy 171.9 ml/min; Est GFR (African American) 128.8 ml/min; Est GFR (Non-African American) 111.1 ml/min; Potassium 3.8 mmol/L (3.5-5.1)
[2020-12-06] MEDS ORDERED: dexAMETHasone 8 MG in SYRINGE 0 ML IV SCH (09:00)
[2020-12-06] MEDS ORDERED: INSULIN HUMAN NPH SC SCH (09:00)
[2020-12-06] MEDS: GABAPENTIN 300 MG CAP PO SCH ×2 (09:07→13:00)
[2020-12-06] MEDS: LISINOPRIL/HCTZ 20/12.5MG 1 TAB TAB PO SCH (09:11)
[2020-12-06] MEDS: ATORVASTATIN 40 MG TAB PO SCH (09:11)
[2020-12-06] MEDS: INSULIN ASPART 100 UNITS/ML 3 ML PEN SC SCH ×2 (09:12→13:00)
--- NOTE | 2020-12-06 10:18 | Discharge Summary ---
Date of Service December 06, 2020 Admission HPI Per Admitting Provider This is a 45-year-old male known to me the presents with chronic persistent back and leg pain. After failing extensive course of nonoperative care is here for surgical intervention. Principal Diagnosis Lumbar spinal stenosis with neurogenic claudication Discharge Data Allergies Allergy/AdvReac Type Severity Reaction Status Date / Time No Known Allergies Allergy Unverified 12/04/20 09:02 Consultations 12/04/20 14:22 Consult Hospitalist Routine Procedures Performed Operation Date: 12/04/20 10:05 Actual Procedures p L3-L4 Decompression and Fusion, Spinal Cord Monitoring - Dre Christensen DO s L4-L5 Hardware Removal - Dre Christensen DO Ordered Studies 12/04/20 10:05 FL lumbar spine 2-3V Routine Hospital Course (1) Lumbar radiculopathy: Patient with lumbar decompression fusion tolerated this well second orthopedic for postop labor postop day 1 is up and ambulating back pain controlled progressed to postop day #2. OSIEL drain decreasing appropriately. Pain well controlled. Excellent strength testing. Subsequent discharge home. Discharge orders and instructions found the chart for further review. 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 You may walk to your tolerance. It is good exercise for your legs and back. Expect some back and intermittent leg aches and pains. 2. You may perform "counter-top" level activities (make a sandwich, ludy with a project, etc.). 3. No bending or lifting of more than 10 pounds or back twisting of any nature (roll like a log when turning in bed). 4. You may ride in a car for 20-30 minutes at a time. No driving until after your first visit with your doctor. 5. Frequent changes of position and restricting sitting to 30 minutes at a time will help limit the amount of back spasms and stiffness you may experience. 6. You may discontinue the use of ambulatory aids (cane, crutches, etc.) once your strength and confidence allow. 7. You may laminating machine offbearer the shower and let water strike your incision when you arrive home at least once daily. Do not take a tub bath, sit in a hot tub or go into a swimming pool until after your first recheck in the office. SPECIAL CARE INSTRUCTIONS: VERY IMPORTANT TO READ AND REVIEW A. Your surgical incision has been closed with a cosmetic suture under the skin that will dissolve in about 6 weeks. In 14 days, you can use a pair of clean scissors and cut the suture that is left outside of the skin at the ends of your incision. 1. The small skin tapes can be removed 7 days after surgery if they have not fallen off by that point. 2. You may keep the wound open to air as much as possible to promote healing after post-op day number 5 unless told otherwise by your doctor. 3. If you think the wound looks like it is becoming infected (redness or worsening drainage) and/or you are experiencing fever, chill or worsening back pain and muscle spasms, contact the office so that we may evaluate you as soon as possible. B. Complications are uncommon, but please contact us if you have any signs or symptoms of: 1. wound infection (fever higher than 102.5 degrees F, redness, separation of wound, drainage, or increasing pain from the incision) 2. blood clots in legs (pain, swelling, redness and warmth in legs) 3. urinary tract infection (fever higher than 102.5 degrees F, burning upon urination or increased frequency of urination) 4. nerve problems (inability to walk on your toes or heels, numbness, loss of bowel or bladder control) 5. any other symptoms that concern you C. Please call the office at if you have any concerns or questions about your operation or recovery. D. No smoking! Smoking drastically decreases the chance of a solid fusion. E. Do not take any anti-inflammatory medications (Indocin, Advil, Motrin, Aspirin, Naprosyn, etc.) as these may inhibit the chance of a solid fusion. Tylenol is okay to take for pain. MANAGING PAIN AFTER SPINAL SURGERY 1. Narcotic medication is intended for short-term use and will be provided for surgical pain. Surgical pain usually lasts for a period of 4-6 weeks. Narcotic medication includes Percocet, Vicodin, Darvocet, Tylenol #3 or Lortab. 2. Longer-term pain is more appropriately treated with non-narcotic medication such as Tylenol ES. 3. Muscle spasm is not appropriately treated with narcotics. Muscle relaxers such as Soma, Flexeril or Skelaxin can be used along with Tylenol ES. 4. Remember that we all live with some "aches and pains". This is not unusual or uncommon after an injury or as we get older. a. Back pain is expected and may include muscle spasms for 4 to 6 weeks after surgery. The pain should gradually improve. If the pain worsens for no apparent reason, please contact the office. b. Intermittent leg pain may also be experienced and should not be concerned about unless it worsens for no apparent reason. If so, please contact the office. 5. We will provide appropriate medication within the normal guidelines of their prescribed use. We will also be very cautious and aware of potential abuse and extended duration of patients' medication needs. a. Pain medications are for your comfort and to assist with sleep and rest so that the tissue can heal. They are not provided in order to return to normal activity and should not be used through the day. To do so or worsening pain at night can result from ongoing tissue damage and development of tolerance to the prescribed medicine. 6. Please allow 2-3 days to process refills. Prescriptions will not be mailed but must be picked up at the office. FOLLOW UP VISIT: Keep your scheduled follow-up appointment. Any questions, please call the office at . Addtl It Security Consultant Provider Instructions: You will need to follow up with Dr. Joyce regarding further management of your diabetic medications/additional agents if needed. It is recommended to check your blood sugars at home to have an idea how they are trending and watch your diet. Your triglycerides were also elevated and you may need additional medications such as zetia/etc for additional management of this as well as for your diabetes. It is also recommended that you improve diet/exercise/weight loss to help with these as well. Pending Studies at Discharge: No Stand-Alone Forms: My [employer], Smoking Cessation Medications and DC Order Prescriptions: New tramadol 50 mg tablet 50 mg PO Q6H PRN (Reason: pain, moderate) Qty: 30 RF: 0 oxycodone 5 mg tablet 5 mg PO Q6H PRN (Reason: pain, severe) Qty: 30 RF: 0 Continued (DME) blood sugar diagnostic [OneTouch Verio test strips] Strip See Rx Instructions .ROUTE .MEDSUPPLY Qty: 100 RF: 1 (DME) blood-glucose meter [OneTouch Verio Meter] Misc See Rx Instructions .ROUTE .MEDSUPPLY Qty: 1 RF: 0 (DME) lancets [OneTouch Delica Lancets] 30 gauge misc See Rx Instructions .ROUTE .MEDSUPPLY Qty: 100 RF: 1 lisinopril-hydrochlorothiazide 20-12.5 mg tablet 1 tab PO BID Qty: 180 RF: 1 metformin 500 mg tablet extended release 24hr 1,000 mg PO BID Qty: 120 RF: 1 (DME) Auto Titrating CPAP Misc See Rx Instructions .ROUTE .MEDSUPPLY Qty: 1 RF: 0 atorvastatin 40 mg tablet 40 mg PO DAILY Qty: 30 RF: 2 Farxiga 5 mg tablet 5 mg PO DAILY Qty: 30 RF: 1 gabapentin 300 mg capsule 300 mg PO TID RF: 0 Discharge Orders: Discharge Order (Routine); Ordered 12/06/20 Ordered By: Dre Christensen Admission Data Admit Date/Time: 12/04/20 12:49 Attending Provider: Dre Christensen Admit Provider: Dre Christensen Primary Care Provider: Ginger Joyce Other Providers: Lisseth Brown ; Nick Barrera
--- NOTE | 2020-12-06 10:55 | Pharmacy Report ---
Pharmacy Glycemic Short Note 2 - Date of Service December 06, 2020 - Glycemic Short BSG Results (Last 24 hours): 12/05/20 12/05/20 12/05/20 12:07 17:18 20:30 Glucose POC Glucose 163 H 120 H 130 H 12/06/20 12/06/20 06:23 08:01 Glucose 150 H POC Glucose 159 H OUTPATIENT ANTIDIABETIC REGIMEN: * Metformin ER 1000 mg PO BIDM * Farxiga 5 mg PO qAM * HbA1c = 8.3% (12/02/20) ASSESSMENT: 12/06: * Patient well controlled yesterday on 25 units of lantus and 45 units novolog. However given patient was initiated on IV dexamethasone this morning, NPH ~0.3 units/kg dose will be initiated with a low dose lantus scale this evening if needed. * Novolog scale per weight based high stress dosing 12/05: * Patient reasonably controlled over the past 24 hours. Will continue with a low to moderate stressed weight based lantus regimen and continue with a tighter NovoLog scale. Patient is tolerating a diet. * Of note, IV dexamethasone is ordered to begin tomorrow morning. Will plan on initiating NPH with this tomorrow. 12/04 * 45 yo M admitted s/p spinal fusion. Pharmacy has been consulted to assist with inpatient glycemic management. Patient did not receive any steroids perioperatively. * Preoperative BSG was 213 mg/dL. Postoperative BSG was 196 mg/dL. Patient was given 3 units of SC Regular insulin. BSG improved to 151 mg/dL. * Will start patient on Lantus based on actual body weight and stress of 2-3. Same goes for Novolog. First Lantus dose now followed by a smaller dose at HS if required per BSG. PLAN FOR INPATIENT GLYCEMIC CONTROL: * Hold outpatient oral diabetes medications * Basal insulin * NPH 35 units SC this morning * Lantus 0-10 units SC BID per BSG (see EHR for more details) * Bolus insulin * NovoLog per scale ACHS or Q6hrs while NPO * Goal Range: Low 110 mg/dL - High 140 mg/dL * Correction Factor: 15 mg/dL/unit * Nutritional / Prandial insulin per carb ratio of 1 unit per 4 grams CHO consumed
[2020-12-06] MEDS ORDERED: INSULIN GLARGINE SOLOSTAR 100 UNITS/ML 3 ML PEN SC SCH (21:00)
== END 2020-12-06 14:21 | disposition home or self-care (01) ==
LOC: ASU 08:26 → 3N 12:49